=== PATIENT | female | born 1965 | race Caucasian/White ===

== ENCOUNTER → 2016-11-11 | Outpatient (CLI) | payer OTHER ==
[~2016-11-11] MED LIST: CLR10 PO; DXY100 PO; FLNIN/; FLUT0.0529 NAE; MULT-614 PO; NYSTCRE11 TOP; RANI150T3 PO; TAMO10TA25 PO; TRMCR180 EXT; VITA1TAB4 PO; VLT500 PO
[2016-11-11 10:18] LABS: HEMATOCRIT 38.6 % (37-47); MEAN CELL VOLUME 86.9 fL (80-100); MEAN CORPUSCULAR HEMOGLOBIN 29.3 pg (25-34); MEAN CORPUSCULAR HGB CONC 33.7 g/dl (32-36); MEAN PLATELET VOLUME 9.8 fL (7.4-10.4); PLATELET COUNT 279 K/uL (130-400); RED BLOOD COUNT 4.44 M/uL (4.2-5.4); WHITE BLOOD COUNT 7.25 K/uL (4.8-10.8)
[2016-11-11 10:27] LABS: ALT/SGPT 25 U/L (12-78); AST/SGOT 13 U/L (15-37); BLOOD UREA NITROGEN 11 mg/dl (7-18); BUN/CREATININE RATIO 15.9 (10-20); CARBON DIOXIDE 28 mmol/L (21-32); CHLORIDE 105 mmol/L (98-107); CREATININE 0.71 mg/dl (0.60-1.20); GLUCOSE 85 mg/dl (70-99); POTASSIUM 4.2 mmol/L (3.5-5.1); SODIUM 141 mmol/L (136-145)
[2016-11-11 10:30] LABS: ALKALINE PHOSPHATASE 81 U/L (45-117)
== END | disposition home or self-care (01) ==
LOC: C.LAB 09:13
PROVIDERS: ATTEND Family Medicine
DX: R10.11 Right upper quadrant pain (principal)

== ENCOUNTER → 2016-11-12 | Outpatient (CLI) | payer OTHER ==
--- NOTE | 2016-11-12 09:22 | DIAGNOSTIC IMAGING REPORT ---
ULTRASOUND RIGHT UPPER QUADRANT ABDOMEN CLINICAL HISTORY: Right upper quadrant abdominal pain. COMPARISON STUDY: Abdominal ultrasound dated 08/01/2007. TECHNIQUE: Real-time, grayscale, and color flow sonography of the right upper quadrant of the abdomen was performed. Images are reviewed in the transverse and longitudinal planes. FINDINGS: Liver: The liver is normal in size and and demonstrates heterogeneously increased echotexture consistent with hepatic steatosis. There is no intrahepatic biliary ductal dilatation. The main portal vein is patent. Gallbladder: The gallbladder is normal in appearance. No gallstones are identified. There is no gallbladder wall thickening or pericholecystic fluid. A sonographic Jacobsen's sign is reportedly absent. The common bile duct measures up to 0.5 cm in diameter. Pancreas: Visualized portions of the pancreatic head and body are normal in appearance. Right kidney: Survey images of the right kidney demonstrate normal size and echotexture. There is no hydronephrosis. Ascites: None. IMPRESSION: 1. No acute sonographic abnormality is identified in the right upper quadrant. No gallstones are seen. 2. Mild hepatic steatosis. Electronically signed by: Charles Live M.D. 11/12/2016 9:21 AM Dictated Date/Time: 11/12/2016 9:20 AM
== END | disposition home or self-care (01) ==
LOC: C.ULTR 08:29
PROVIDERS: ATTEND Family Medicine
DX: R10.11 Right upper quadrant pain (principal)

== ENCOUNTER → 2016-11-22 | Outpatient (CLI) | payer OTHER | END | disposition home or self-care (01) | LOC: C.PAPS 16:55 | PROVIDERS: ATTEND Obstetrics & Gynecology | DX: N87.1 Moderate cervical dysplasia (principal); Z01.419 Encounter for gynecological examination (general) (routine) without abnormal findings ==

== ENCOUNTER → 2016-12-21 | Outpatient (CLI) | payer OTHER ==
[2016-04-27 14:03] VITALS: BP 125/78; PULSE 84
[2016-12-21 13:16] VITALS: BP 119/80; PULSE 80; TEMP 36.7; O2SAT 96
--- NOTE | 2016-12-21 16:11 | Radiation Oncology Follow-Up ---
"Radiation Oncology Follow-Up Date of Visit Dec 21, 2016. Reason For Visit Eight-month follow-up Radiation Completion Date 09/26/13 Diagnosis (1) Carcinoma of left breast Status: Resolved Onset Date: 06/22/2013 Stage: 0 Permanent Comment: Abnormal left breast mammogram Status post stereotactic core needle biopsy 05/31/2013 revealing atypical intraductal hyperplasia Status post excisional biopsy 06/22/2013 revealing low-grade DCIS Status post completion of radiation therapy 09/26/2013 received 5040 cGy Last Edited By: Lexi Durant on Dec 21, 2016 16:03 History of Present Illness Ms. Downey continue to be followed with diagnostic mammograms. On 05/27/2014 bilateral diagnostic mammograms revealed postbiopsy changes but otherwise unremarkable. A unilateral left digital diagnostic mammogram on 06/14/2014 showed the biopsy clip in the left breast at 12 o'clock position. Follow-up unilateral left digital diagnostic mammogram on 12/16/2014 showed heterogeneously dense tissue of the left breast. Spot magnification views demonstrated postsurgical changes in the left superior breast at the 12 o'clock position from the prior lumpectomy. 2 residual biopsy marker clips were noted. The remainder of the left breast was stable. On 12/31/2014 patient underwent bilateral breast MRIs due to the dense breast tissue. In the right breast there was no suspicious masses or areas of abnormal enhancements noted. In the left breast there was the expected postsurgical changes with no suspicious masses or abnormal areas of enhancement. There was no evidence of left axillary adenopathy. However there was abnormally round and enlarged right axillary lymph node in the superior right axilla measuring 1.5 x 1.5 cm. This is indeterminate and ultrasound was recommended for further evaluation. On 01/2015 she underwent an ultrasound of the right breast and axilla. This confirmed a round hypoechoic mass measuring 1.3 x 1.3 x 1.5 cm this corresponded with the abnormal lymph nodes seen on MRI. This was not amenable to an ultrasound-guided core biopsy therefore an FNA was recommended. On 02/05/2015 patient underwent a fine-needle aspiration biopsy of the right axillary lymph node. The tissue obtained however was nondiagnostic. Case: [id number]. The recommendation was therefore to proceed with a surgical biopsy. Dr. Jimmy Valentin performed this on 03/21/2015. A reactive lymph node was identified containing lymphoid hyperplasia with no abnormal cells appreciated. Case: [id number]. The patient wishes to continue to be followed with serial mammograms. She was scheduled for bilateral diagnostic mammograms in June of this year. We were facilitating scheduling this study for her. Patient underwent a bilateral digital diagnostic mammogram on 06/17/2015. This showed some residual calcifications in the left o'clock breast adjacent to tumor biopsy marker clips not significantly changed from the study of May 2014. Follow-up mammogram in 6 months was recommended. rs. Downey underwent a unilateral left digital diagnostic mammogram on 2015. Spot magnification views of the left breast again demonstrated postsurgical changes at the 12 o'clock position. The residual calcifications adjacent to biopsy marker clips are not significantly changed. These have been stable for approximately 2 years and are likely benign. Recommended bilateral diagnostic mammograms in 6 months. These been scheduled for June of 2016. Interim History She's been doing well over the past 8 months. She has had her follow-up mammography. She does have a area of redness in the inframammary fold. She was prescribed a cream by her business analytics intern. This helps temporarily. The rash will faded then recur. There is no itching associated. This is only on the left side. This does not occur on the right. She has noted no masses or tenderness and no change of the axilla. She continues on tamoxifen and denies side effects. Allergies Coded Allergies: Diphtheria Toxoid (Verified Adverse Reaction, Intermediate, SWELLING, 03/30) Tetanus Toxoid (Verified Adverse Reaction, Intermediate, SWELLING, 03/30/16 ) Home Medications Scheduled Multiple Vitamins W/ Minerals (Centrum Silver Ultra [place]), 1 TAB PO QAM Tamoxifen Citrate (Tamoxifen Citrate), 10 MG PO BID Vitamin E (Vitamin E), 400 INTUNIT PO BID Scheduled PRN Fluticasone Propionate (Nasal) (Flonase), 2 SPRAY SULMA DAILY PRN for Nasal Congestion Loratadine (Claritin), 10 MG PO DAILY PRN for Nasal Congestion Nystatin/Triamcinolone (Mycogen || ), 1 APPLN TOP BID PRN for Affected Skin Folds Ranitidine Hcl (Zantac), 150 MG PO DAILY PRN for Heartburn Review of Systems Gastrointestinal: Symptoms: WNL Oral: Symptoms: No Problems Respiratory: Symptoms: WNL Other Respiratory: Recent episode of bronchitis treated with steroids/ antibiotics Urinary: Symptoms: WNL Skin: Symptoms: No Problems Other Skin Symptoms: Intermittent pink area under left breast where breast lays against abd; Breast: Right Upper Arm Measurement: 38.0 Right Mid Arm Measurement: 30.5 Right Wrist Measurement: 16.5 Left Upper Arm Measurement: 37.0 Left Mid Arm Measurement: 30.0 Left Wrist Measurement: 16.0 Arm Dominence: Right Patient Cosmetic Evaluation: Good Physical Exam Vital Signs Date Time Temp Pulse Resp B/P Pulse Ox O2 Delivery O2 Flow Rate FiO2 12/21/16 13:16 36.7 80 12 119/80 96 Pain: Pain Location: None Patient Pain Scale: 0 - 10 Initial Pain Intensity: 0.0 Fatigue: None General Appearance: no apparent distress Eyes: normal inspection, EOMI ENT: normal ENT inspection, hearing grossly normal Neck: no adenopathy, thyroid normal Respiratory/Chest: lungs clear, no respiratory distress, no accessory muscle use Breast: Breast examination reveals a well demarcated area of erythema in the inframammary fold of the left breast. This is slightly more red at the edges. There are no satellite lesions. She also has some mild raised erythematous lesions below the nipple. There are also some patchy dry areas noted in the lower inner portion of the right breast. On the left there are no masses or tenderness and no axillary adenopathy. Using the [place] score cosmesis she has a good outcome. The right breast showed no masses or tenderness and no axillary adenopathy. Cardiovascular: regular rate, rhythm, no gallop, no murmur Extremities: no pedal edema Neurologic/Psychiatric: no motor/sensory deficits, alert, normal mood/affect Skin: warm/dry Lymphatic: no adenopathy Laboratory Studies Test 11/11/16 09:24 12/15/16 09:10 White Blood Count 7.25 K/uL (4.8-10.8) 6.79 K/uL (4.8-10.8) Red Blood Count 4.44 M/uL (4.2-5.4) 4.51 M/uL (4.2-5.4) Hemoglobin 13.0 g/dL (12.0-16.0) 12.9 g/dL (12.0-16.0) Hematocrit 38.6 % (37-47) 38.3 % (37-47) Mean Corpuscular Volume 86.9 fL (80-100) 84.9 fL (80-100) Mean Corpuscular Hemoglobin 29.3 pg (25-34) 28.6 pg (25-34) Mean Corpuscular Hemoglobin Concent 33.7 g/dl (32-36) 33.7 g/dl (32-36) RDW Standard Deviation 41.3 fL (36.4-46.3) 39.2 fL (36.4-46.3) RDW Coefficient of Variation 12.9 % (11.5-14.5) 12.9 % (11.5-14.5) Platelet Count 279 K/uL (130-400) 310 K/uL (130-400) Mean Platelet Volume 9.8 fL (7.4-10.4) 9.2 fL (7.4-10.4) Sodium Level 141 mmol/L (136-145) 140 mmol/L (136-145) Potassium Level 4.2 mmol/L (3.5-5.1) 4.0 mmol/L (3.5-5.1) Chloride Level 105 mmol/L (98-107) 105 mmol/L (98-107) Carbon Dioxide Level 28 mmol/L (21-32) 29 mmol/L (21-32) Anion Gap 8.0 mmol/L (3-11) 6.0 mmol/L (3-11) Blood Urea Nitrogen 11 mg/dl (7-18) 11 mg/dl (7-18) Creatinine 0.71 mg/dl (0.60-1.20) 0.66 mg/dl (0.60-1.20) Estimated GFR () 113.5 117.7 Estimated GFR (Non- 97.9 101.6 BUN/Creatinine Ratio 15.9 (10-20) 17.0 (10-20) Random Glucose 85 mg/dl (70-99) 108 mg/dl (70-99) Calcium Level 9.0 mg/dl (8.5-10.1) 9.0 mg/dl (8.5-10.1) Total Bilirubin 0.4 mg/dl (0.2-1) 0.3 mg/dl (0.2-1) Aspartate Amino Transferase (AST) 13 U/L (15-37) 15 U/L (15-37) Alanine Aminotransferase (ALT) 25 U/L (12-78) 27 U/L (12-78) Alkaline Phosphatase 81 U/L (45-117) 93 U/L (45-117) Total Protein 7.1 gm/dl (6.4-8.2) 7.1 gm/dl (6.4-8.2) Albumin 3.6 gm/dl (3.4-5.0) 3.5 gm/dl (3.4-5.0) Globulin 3.5 gm/dl (2.5-4.0) 3.6 gm/dl (2.5-4.0) Albumin/Globulin Ratio 1.0 (0.9-2) 1.0 (0.9-2) Lipase 125 U/L (73-393) Neutrophils (%) (Auto) 52.8 % Lymphocytes (%) (Auto) 35.2 % Monocytes (%) (Auto) 9.0 % Eosinophils (%) (Auto) 2.1 % Basophils (%) (Auto) 0.3 % Neutrophils # (Auto) 3.59 K/uL (1.4-6.5) Lymphocytes # (Auto) 2.39 K/uL (1.2-3.4) Monocytes # (Auto) 0.61 K/uL (0.11-0.59) Eosinophils # (Auto) 0.14 K/uL (0-0.5) Basophils # (Auto) 0.02 K/uL (0-0.2) Immature Granulocyte % (Auto) 0.6 % Immature Granulocyte # (Auto) 0.04 K/uL (0.00-0.02) Est Creatinine Clear Calc Drug Dose 117.9 ml/min Assessment & Plan Plan: The areas of the skin appear to be related to monilial infection. She notes she did recently have laboratory studies and glucose was normal if she was not fasting area. This to be slightly elevated if she had been fasting. Topical medications are not helping with the monilial infection. She has in the past taken Diflucan. Prescription was given for 100 mg pills. She'll take 2 today and then one to complete. #8 were given and no refill. We asked her to return to our office in 3 months. Will be to reevaluate the areas of skin irritation. She continues to have changes in the area of the nipple she'll be referred back to her surgeon for an evaluation. She'll continue with scheduled mammography. She continues on tamoxifen. Total Time In Follow-Up I spent 20 minutes speaking to the patient and performing examination. I spent 15 minutes reviewing information completing this note. Copy To Inocente Enriquez D.O.; Aleena Solomon M.D."
== END | disposition home or self-care (01) ==
LOC: C.ONC 13:09
PROVIDERS: ATTEND Physician Assistant Medical
DX: Z08 Encounter for follow-up examination after completed treatment for malignant neoplasm (principal); Z92.3 Personal history of irradiation; Z85.3 Personal history of malignant neoplasm of breast

== ENCOUNTER → 2017-01-24 | Outpatient (CLI) | payer OTHER ==
[2017-01-24 10:05] LABS: CHOLESTEROL/HDL RATIO 3.3
== END | disposition home or self-care (01) ==
LOC: C.LAB 08:16
PROVIDERS: ATTEND Family Medicine
DX: Z13.1 Encounter for screening for diabetes mellitus (principal); Z13.6 Encounter for screening for cardiovascular disorders

== ENCOUNTER → 2017-04-05 | Outpatient (CLI) | payer OTHER ==
[2017-04-05 13:49] VITALS: BP 138/84; PULSE 83; TEMP 36.7; O2SAT 99
--- NOTE | 2017-04-05 17:00 | Radiation Oncology Follow-Up ---
"Radiation Oncology Follow-Up Date of Visit Apr 05, 2017. 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 Paez continue to be followed with diagnostic mammograms. On 05/27/2014 bilateral diagnostic mammograms revealed postbiopsy changes but otherwise unremarkable. A unilateral left digital diagnostic mammogram on 06/14/2014 showed the biopsy clip in the left breast at 12 o'clock position. Follow-up unilateral left digital diagnostic mammogram on 12/16/2014 showed heterogeneously dense tissue of the left breast. Spot magnification views demonstrated postsurgical changes in the left superior breast at the 12 o'clock position from the prior lumpectomy. 2 residual biopsy marker clips were noted. The remainder of the left breast was stable. On 12/31/2014 patient underwent bilateral breast MRIs due to the dense breast tissue. In the right breast there was no suspicious masses or areas of abnormal enhancements noted. In the left breast there was the expected postsurgical changes with no suspicious masses or abnormal areas of enhancement. There was no evidence of left axillary adenopathy. However there was abnormally round and enlarged right axillary lymph node in the superior right axilla measuring 1.5 x 1.5 cm. This is indeterminate and ultrasound was recommended for further evaluation. On 01/2015 she underwent an ultrasound of the right breast and axilla. This confirmed a round hypoechoic mass measuring 1.3 x 1.3 x 1.5 cm this corresponded with the abnormal lymph nodes seen on MRI. This was not amenable to an ultrasound-guided core biopsy therefore an FNA was recommended. On 02/05/2015 patient underwent a fine-needle aspiration biopsy of the right axillary lymph node. The tissue obtained however was nondiagnostic. Case: [id number]. The recommendation was therefore to proceed with a surgical biopsy. Dr. Jimmy Valentin performed this on 03/21/2015. A reactive lymph node was identified containing lymphoid hyperplasia with no abnormal cells appreciated. Case: [id number]. The patient wishes to continue to be followed with serial mammograms. She was scheduled for bilateral diagnostic mammograms in June of this year. We were facilitating scheduling this study for her. Patient underwent a bilateral digital diagnostic mammogram on 06/17/2015. This showed some residual calcifications in the left o'clock breast adjacent to tumor biopsy marker clips not significantly changed from the study of May 2014. Follow-up mammogram in 6 months was recommended. Interim History She's been doing well over the past year regards to her breast. No no masses or tenderness no change of the axilla. She's had no swelling of her arm. She is up-to-date on mammography. She had a mammogram 06/21/2016 there were postsurgical and postbiopsy changes in the left breast. Recommendation was for a repeat in 12 months. She had been having pain in the right upper quadrant of the abdomen and had an ultrasound 12/09/2016. There was no acute sonographic abnormalities identified. There was mild hepatic steatosis. Allergies Coded Allergies: Diphtheria Toxoid (Verified Adverse Reaction, Intermediate, SWELLING, 03/30) Tetanus Toxoid (Verified Adverse Reaction, Intermediate, SWELLING, 03/30/16 ) Home Medications Scheduled Multiple Vitamins W/ Minerals (Centrum Silver Ultra [place]), 1 TAB PO QAM Tamoxifen Citrate (Tamoxifen Citrate), 10 MG PO BID Vitamin E (Vitamin E), 400 INTUNIT PO BID Scheduled PRN Fluticasone Propionate (Nasal) (Flonase), 2 SPRAY SULMA DAILY PRN for Nasal Congestion Loratadine (Claritin), 10 MG PO DAILY PRN for Nasal Congestion Nystatin/Triamcinolone (Mycogen || ), 1 APPLN TOP BID PRN for Affected Skin Folds Ranitidine Hcl (Zantac), 150 MG PO DAILY PRN for Heartburn Review of Systems Gastrointestinal: Symptoms: WNL Oral: Symptoms: No Problems Respiratory: Symptoms: SOB At Rest Urinary: Symptoms: WNL Skin: Symptoms: No Problems Other Skin Symptoms: under left breast skin is pink since had rash there Breast: Right Upper Arm Measurement: 37.0 Right Mid Arm Measurement: 29.0 Right Wrist Measurement: 16.5 Left Upper Arm Measurement: 37.0 Left Mid Arm Measurement: 28.5 Left Wrist Measurement: 16.3 Arm Dominence: Right Patient Cosmetic Evaluation: Good Staff Cosmetic Evalaluation: Excellent Physical Exam Vital Signs Date Time Temp Pulse Resp B/P (MAP) Pulse Ox O2 Delivery O2 Flow Rate FiO2 04/05/17 13:49 36.7 83 18 138/84 99 Pain: Patient Pain Scale: 0 - 10 Initial Pain Intensity: 0.0 Fatigue: None General Appearance: no apparent distress Eyes: normal inspection, EOMI ENT: normal ENT inspection, hearing grossly normal Neck: no adenopathy, thyroid normal Respiratory/Chest: lungs clear, no respiratory distress, no accessory muscle use Breast: Breast examination reveals well-healed incisions of the left breast. There are no masses or tenderness and no axillary adenopathy. There is no hyperpigmentation or skin retractions. Using the [place] score cosmesis she has a good outcome. There is mild erythema or skin in the inframammary fold on the left. This is well demarcated. Right breast showed no masses or tenderness no axillary adenopathy. Cardiovascular: regular rate, rhythm, no gallop, no murmur Abdomen: non tender, soft Extremities: no pedal edema Neurologic/Psychiatric: no motor/sensory deficits, alert, normal mood/affect Skin: warm/dry Laboratory Studies Test 01/24/17 08:20 Random Glucose 88 mg/dl (70-99) Triglycerides Level 170 mg/dl (0-150) Cholesterol Level 177 mg/dl (0-200) HDL Cholesterol 54 mg/dl LDL Cholesterol, Calculated 89 mg/dl VLDL Cholesterol, Calculated 34 mg/dl Cholesterol/HDL Ratio 3.3 Additional Studies Patient: JENNIFER PAEZ [facility] Rec: [id number] Address1: [address] [place] [address] Address2: [facility] ID: [id number] Date: 1965 Sex: F Ref Phy: Att Phy: Inocente Enriquez D.O. Terri Phy: Aleena Solomon M.D. Inter Phy: Ruth Chandra MD [facility] Zip: [place] [address] SC: [id number] Report #: [id number] Club Concierge: PITA Diagnosis: 6 MONTH F/U LEFT--BILATERAL DUE Service Date: 06/21/16 MNE: [id number] Ordering Dr: Inocente Enriquez D.O. CC: Balaban, Edward P., D.O. CONF: DICTATED BY: Ruth Chandra MD MAMMOGRAPHY REPORT BILATERAL DIGITAL DIAGNOSTIC MAMMOGRAM 3D/2D WITH CAD: 06/21/2016 CLINICAL HISTORY: 51-year-old woman with a personal history of left breast cancer status post lumpectomy and radiation. The original biopsy marker clip denoting the site of the original biopsy-proven DCIS remains in the left breast. A second biopsy marker clip is present anteriorly denoting microcalcifications which were biopsied after treatment and yielded benign pathology. Comparison is made to exams dated: 12/17/2015 mammogram, 06/17/2015 mammogram, and 05/27/2014 mammogram - [facility]. FINDINGS: Bilateral CC and MLO to the digital and tomosynthesis images, spot magnification left CC and ML views were obtained. There are scattered areas of fibroglandular density in both breasts. Current study was also evaluated with a Computer Aided Detection (CAD) system. Again seen are 2 metallic biopsy markers in the 12:00 middle one third of the left breast. There are clustered microcalcifications near the 2 metallic biopsy markers which are located near the posterior and anterior aspect of the clustered microcalcifications. These span approximately 5 cm in AP dimension by 2 cm in transverse dimension. The microcalcifications are somewhat punctate and amorphous but a few centrally look more reticular on the current spot magnification views, suggesting they could represent benign fat necrosis. No other new clusters of microcalcifications are seen bilaterally. No obvious new mass or unexpected architectural distortion. IMPRESSION: ACR-BI-RADS CATEGORY 3: PROBABLY BENIGN There are expected postsurgical and post biopsy changes within the left breast, with a 5 x 2 cm cluster of microcalcifications remaining in the middle one third of the left breast. Some of the calcifications appear coarsened and reticular, suggesting they represent dystrophic calcification. Others remain amorphous, yet the overall number appears stable comparing back to spot magnification views over the past 2 years. Since the original biopsy marker clip remains in the breast some of the calcifications could represent indolent DCIS but overall given the more recent biopsy-proven benign calcifications, they probably represent fat necrosis and postsurgical change. Therefore, we will continue to follow with spot magnification views but will space out the timing to 12 months at the time of next annual screening mammogram. These results and recommendations were discussed with the patient at the time of the exam. Follow-up bilateral mammograms including tomosynthesis images and spot magnification views of the left breast are recommended in 12 months. Approximately 10% of breast cancers are not detected with mammography. A negative mammographic report should not delay biopsy if a clinically suggestive mass is present. Ruth Chandra M.D. ay/:06/21/2016 15:14:04 Sugar Controller: Angela LOCKETT)(Marian), [facility] letter sent: Follow Up Recommended 3 BI-RADS Code: ACR-BI-RADS Category 3: Probably Benign Dictated by: Ruth Chandra MD Signed by: Ruth Chandra MD Patient: JENNIFER PAEZ Address1: [address] [facility] Rec: [id number] Address2: Acct ID: [id number] [facility] Zip: [place] [address] Date: 1965 Sex: F Room/Bed: Ref Phy: Kendell Aguilar D.O. SC: C.ULTR Att Phy: Kendell Aguilar D.O. Report #: [id number] Terri Phy: Kendell Aguilar D.O. Test: ABDL Admit Phy: Club Concierge: SAIMA Interpreting Phy: Charles Live M.D. Diagnosis: RUQ ABD PAIN Ordering Phy: Kendell Aguilar D.O. Service Date: 11/12/16 Admit Date: 11/12/16 MNE: [id number] CONF: DICTATED BY: Charles Live M.D.]] CC: Kendell Aguilar D.O. Endcc: [~ rep ct add3]] ULTRASOUND RIGHT UPPER QUADRANT ABDOMEN CLINICAL HISTORY: Right upper quadrant abdominal pain. COMPARISON STUDY: Abdominal ultrasound dated 08/01/2007. TECHNIQUE: Real-time, grayscale, and color flow sonography of the right upper quadrant of the abdomen was performed. Images are reviewed in the transverse and longitudinal planes. FINDINGS: Liver: The liver is normal in size and and demonstrates heterogeneously increased echotexture consistent with hepatic steatosis. There is no intrahepatic biliary ductal dilatation. The main portal vein is patent. Gallbladder: The gallbladder is normal in appearance. No gallstones are identified. There is no gallbladder wall thickening or pericholecystic fluid. A sonographic Jacobsen's sign is reportedly absent. The common bile duct measures up to 0.5 cm in diameter. Pancreas: Visualized portions of the pancreatic head and body are normal in appearance. Right kidney: Survey images of the right kidney demonstrate normal size and echotexture. There is no hydronephrosis. Ascites: None. IMPRESSION: 1. No acute sonographic abnormality is identified in the right upper quadrant. No gallstones are seen. 2. Mild hepatic steatosis. Electronically signed by: Charles Live M.D. 11/12/2016 9:21 AM Dictated Date/Time: 11/12/2016 9:20 AM Assessment & Plan Plan: Continue annual mammography. We discussed seen a smelter operator for the recurring issue of fungal infection of the inframammary fold. She was in agreement and will call. Information was given regards to available physicians. Continue regular follow-up with her primary care physician and Dr. Enriquez. We discussed the steatosis found on her ultrasound. Recommendation for diet and exercise. She can continue to follow up with with her primary care physician in regards to this finding. We asked her to return to our office in 1 year. She may call if she has any questions or concerns in the interim. Total Time In Follow-Up I spent 20 minutes the need to the patient performing examination. I spent 15 minutes reviewing information in completing this note. Copy To Inocente Enriquez D.O.; Kendell Aguilar, D.O."
== END | disposition home or self-care (01) ==
LOC: C.ONC 13:40
PROVIDERS: ATTEND Physician Assistant Medical
DX: Z08 Encounter for follow-up examination after completed treatment for malignant neoplasm (principal); Z92.3 Personal history of irradiation; Z85.3 Personal history of malignant neoplasm of breast

== ENCOUNTER 2017-05-26 14:48 | Inpatient (IN) | payer OTHER ==
[~2017-05-26] VITALS: Ht 165.1 cm; Wt 106.1 kg
[~2017-05-26 14:48] MED LIST changes: -DXY100 PO; -FLNIN/; -TRMCR180 EXT; -VLT500 PO
[2017-05-26] MEDS ORDERED: FLNIN/ (15:10)
[2017-05-26] MEDS ORDERED: KETOROLAC TROMETHAMINE 30 MG/ML VIAL IV STA (15:12)
[2017-05-26 15:24] LABS: BASO % 0.1 %; BASO ABS # 0.01 K/uL (0-0.2); COMPLETE YES; EOS % 0.4 %; HEMATOCRIT 39.2 % (37-47); IG% 0.2 %; LYMPH % 8.4 %; MEAN CELL VOLUME 87.7 fL (80-100); MEAN CORPUSCULAR HEMOGLOBIN 29.8 pg (25-34); MEAN CORPUSCULAR HGB CONC 33.9 g/dl (32-36); MEAN PLATELET VOLUME 9.4 fL (7.4-10.4); MONO % 6.4 %; NEUT % 84.5 %; PLATELET COUNT 277 K/uL (130-400); RED BLOOD COUNT 4.47 M/uL (4.2-5.4); WHITE BLOOD COUNT 16.63 K/uL (4.8-10.8)
--- NOTE | 2017-05-26 15:26 | DIAGNOSTIC IMAGING REPORT ---
CHEST ONE VIEW PORTABLE CLINICAL HISTORY: 52 years-old Female presenting with CHEST PAIN. TECHNIQUE: Portable upright AP view of the chest was obtained. COMPARISON: Nondiagnostic CT from 08/01/2013. FINDINGS: Cardiomediastinal silhouette normal. Lungs and pleural spaces clear. Degenerative changes of the thoracic spine. Upper abdomen normal. IMPRESSION: 1. No acute cardiopulmonary disease. Electronically signed by: Mat Becker M.D. 05/26/2017 3:25 PM Dictated Date/Time: 05/26/2017 3:24 PM
[2017-05-26] MEDS ORDERED: SODIUM CHLORIDE 0.9% 1000ML 1,000 ML IV STA ×2 (15:40→18:12)
[2017-05-26 15:45] LABS: ALT/SGPT 25 U/L (12-78); BLOOD UREA NITROGEN 10 mg/dl (7-18); BUN/CREATININE RATIO 11.6 (10-20); CALCIUM 9.2 mg/dl (8.5-10.1); CARBON DIOXIDE 26 mmol/L (21-32); CHLORIDE 103 mmol/L (98-107); CREATININE 0.83 mg/dl (0.60-1.20); GLUCOSE 166 mg/dl (70-99); POTASSIUM 3.7 mmol/L (3.5-5.1); SODIUM 137 mmol/L (136-145)
[2017-05-26 15:50] LABS: ALKALINE PHOSPHATASE 94 U/L (45-117); AST/SGOT 20 U/L (15-37); CKMB/CK RATIO 1.1 (0-3.0)
[2017-05-26] MEDS ORDERED: OPTIRAY 320 IV PRN (16:00)
--- NOTE | 2017-05-26 16:49 | DIAGNOSTIC IMAGING REPORT ---
ABD/PELVIS IV CONTRAST ONLY CT DOSE: 1085.01 mGy.cm HISTORY: Pain Fever, upper abd pain, RUQ. Elevated lactate. TECHNIQUE: Multiaxial CT images of the abdomen and pelvis were performed following the use of intravenous contrast. A dose lowering technique was utilized adhering to the principles of ALARA. COMPARISON STUDY: None. FINDINGS: The lung bases are clear. The liver, spleen, gallbladder, pancreas, kidneys, and adrenal glands are within normal limits. No bowel wall thickening or obstruction. The pelvic organs are unremarkable. No suspicious lytic or blastic osseous lesions. IMPRESSION: No significant abnormality identified within the abdomen or pelvis. The above report was generated using voice recognition software. It may contain grammatical, syntax or spelling errors. Electronically signed by: Quinton Schneider M.D. 05/26/2017 4:48 PM Dictated Date/Time: 05/26/2017 4:45 PM
--- NOTE | 2017-05-26 17:36 | DIAGNOSTIC IMAGING REPORT ---
BILIARY ULTRASOUND CLINICAL HISTORY: RUQ pain, fever COMPARISON STUDY: 11/12/2016 FINDINGS: The pancreas was poorly visualized. The liver was poorly visualized. The liver is of increased echogenicity, nonspecific finding most often seen in hepatic steatosis. There is no right-sided hydronephrosis. There is no ductal dilatation. No gallstones are visualized. IMPRESSION: 1. Significantly limited study from a technical standpoint 2. No gallstones identified 3. No evidence of ductal dilatation 4. Increased hepatic echogenicity, a nonspecific finding most likely secondary to hepatic steatosis Electronically signed by: Kt Blackburn M.D. 05/26/2017 5:34 PM Dictated Date/Time: 05/26/2017 5:33 PM
[2017-05-26] MEDS ORDERED: ONDANSETRON 8 MG/54 ML D5W IV STA (18:12)
[2017-05-26] MEDS ORDERED: HYDROmorphone INJ 0.5 MG/0.5 ML SYR IV STA (18:12)
[2017-05-26] MEDS ORDERED: VANCOMYCIN INJ 2,000 MG in SODIUM CHLORIDE 0.9% 500ML 500 ML IV STA (18:52)
[2017-05-26] MEDS ORDERED: CEFTRIAXONE SOD INJ 1 GM ADDVIAL IV STA (18:52)
[2017-05-26] MEDS ORDERED: TRAMADOL HCL 50 MG TAB PO PRN (20:00)
[2017-05-26] MEDS ORDERED: HYDROmorphone INJ 0.5 MG/0.5 ML SYR IV PRN (20:00)
[2017-05-26] MEDS ORDERED: KETOROLAC TROMETHAMINE 30 MG/ML VIAL IV PRN (20:00)
[2017-05-26] MEDS ORDERED: FLUTICASONE PROPIONATE NA SPR 16 GM BTL PRN (20:00)
[2017-05-26] MEDS ORDERED: LORATADINE 10 MG TAB PO PRN (20:00)
[2017-05-26] MEDS ORDERED: IBUPROFEN 200 MG TAB PO PRN (20:00)
[2017-05-26] MEDS ORDERED: RANITIDINE HCL 150 MG TAB PO PRN (20:00)
[2017-05-26] MEDS ORDERED: LORAZEPAM 2 MG/ML 1 ML VIAL IV PRN (20:00)
[2017-05-26 20:16] LABS: MAGNESIUM 1.9 mg/dl (1.8-2.4); THYROID STIMULATING HORMONE 0.558 uIu/ml (0.300-4.500)
[2017-05-26] MEDS ORDERED: ACETAMINOPHEN 325 MG TAB PO STA (20:27)
[2017-05-26] MEDS ORDERED: LORAZEPAM INJ 0.5 MG in SYRINGE 0.75 ML IV PRN (20:30)
--- NOTE | 2017-05-26 20:50 | HISTORY & PHYSICAL EXAMINATION ---
DATE OF ADMISSION: 05/26/2017 PRIMARY CARE PHYSICIAN: Dr. Aguilar. CHIEF COMPLAINT: Chest discomfort. HISTORY OF PRESENT ILLNESS: Medical history significant for breast cancer L status post surgery, radiation , ongoing hormonal therapy, GERD, hx of herpes zoster. Recent confinement March of 2015 under Orthopedic surgeries for carpal tunnel surgery. Today, the patient woke up not feeling well, indigestion sx, diarrhea, nonbloody , chest discomfort going to the back, pleuritic, nausea, vomiting. Fever noted. At the Emergency Room, a painful rash without blisters was noted on the left flank/L ant abd similar to location of shingles but not as painful as per patient. Patient given IV Vancomycin, Ceftriaxone for sepsis. MEDICAL HISTORY: As above. SURGERIES: Mastectomy, gynecologic procedures, carpal tunnel surgery. HOME MEDICATIONS: Include vitamin E, fluticasone, loratadine, Centrum, Zantac, tamoxifen. ALLERGIES: TETANUS TOXOID. FAMILY HISTORY: Lung cancer, breast cancer, diabetes. PERSONAL SOCIAL HISTORY: Nonsmoker, no chronic intake of alcohol, Hospital pharmacy employee. REVIEW OF SYSTEMS: As per HPI, all other ROS negative. PHYSICAL EXAMINATION: VITAL SIGNS: Blood pressure was noted to be 128/77, pulse rate 117, RR 25, T 38 sats 98% on room air. GENERAL: Noted to be uncomfortable, obese, no respiratory distress. SKIN: Normal color. HEENT: [place] palpebral conjunctivae. Dry mucosa. NECK: Short neck. LUNGS: Decreased effort. HEART: Tachycardic. ABDOMEN: induration on the left anterior abdomen going to the flank, tender and warm. EXTREMITIES: Minimal LE edema. No tenderness NEUROLOGIC: No gross focality. LABORATORY AND IMAGING DATA: Hemoglobin 13.3, white cell count 16.6, platelets 277. Sodium noted to be 138 chloride 103, CO2 26, BUN 10, creatinine 0.8, glucose 166. D-dimer was normal. Troponin was normal. EKG as per my interpretation sinus tachycardia, ST depression on the lateral leads. Chest x-ray, no acute cardiopulmonary disease. CT of the abdomen and pelvis showed liver, spleen, gallbladder, pancreas, kidneys, adrenal glands are normal limits. No bowel wall thickening. ASSESSMENT: 1. Sepsis Possible sources : cellulitis, left flank/lateral abdominal wall (?atypical/beginning shingles) Diarrhea rule out C. difficile 2. Breast cancer, left, status post surgery, radiation, ongoing hormonal therapy. 3. Hyperglycemia, rule out diabetes. PLAN: GMF IVF, follow lactic acid CS, stool Clostridium difficile. Doxycycline for now for cellulitis, local measures for cellulitis. (Low threshold for starting antiviral if no response to antibiotic or with development of classic blistering rash.)vesicular her periods of Flagyl now for presumptive C. diff. in light of sepsis criteria. Discontinue Flagyl if stool C. diff negative Check hemoglobin A1c. DVT prophylaxis with Lovenox subQ. Full code. MTDD
[2017-05-26 20:54] LABS: URINE APPEARANCE CLEAR (CLEAR); URINE BILIRUBIN NEG (NEG); URINE COLOR YELLOW; URINE NITRITE NEG (NEG); URINE PH 7.5 (4.5-7.5); URINE SPECIFIC GRAVITY 1.043 (1.000-1.030); UROBILINOGEN NEG (NEG); ZZUR CULT IF INDIC CLEAN CATCH NO
[2017-05-26 20:56] LABS: MANUAL MICROSCOPIC REQUIRED? NO; REVIEW REQ? NO
[2017-05-26 21:00] VITALS: BP 151/80; PULSE 116; TEMP 38.4; Ht 165.1 cm; Wt 106.1 kg
[2017-05-26] MEDS ORDERED: NSS + 20MEQ KCL 1000ML 1,000 ML IV ONE (21:00)
[2017-05-26] MEDS: TAMOXIFEN CITRATE 10 MG TAB PO SCH (21:26)
[2017-05-26 21:37] LABS: PROTHROMBIN TIME (PATIENT) 10.8 SECONDS (9.0-12.0)
[2017-05-26 22:12] VITALS: TEMP 37.4
[2017-05-26] MEDS: DOXYCYCLINE IV 100 MG in DEXTROSE 5% 100ML 100 ML IV SCH (22:18)
[2017-05-26] MEDS: METRONIDAZOLE / NSS 500 MG in PREMIXED NSS 100 ML IV SCH (22:18)
--- NOTE | 2017-05-26 23:13 | EMERGENCY ROOM VISIT NOTE ---
"History Report prepared by Destiny: Rafi Downey Under the Supervision of: Dr. Jadon Ospina M.D. First contact with patient: 15:02 Chief Complaint: CHEST PAIN Stated Complaint: CHEST PAIN History of Present Illness The patient is a 52 year old female who presents to the Emergency Room with complaints of constant epigastric chest pain beginning 5 hours ago. She currently rates her discomfort a 4/10 in severity. The patient states that when her pain began, she thought it was gas and experienced diarrhea. She reports that she tried burping and took a Zantac, but this did not help. The patient notes that her discomfort radiates to her back, and she developed a fever. She states that when she takes a deep breath, her pain intensifies. The patient reports that walking and moving does not increase her discomfort. She notes that she had pains in her right upper quadrant before, and she was told it was fatty liver. The patient states that this pain is not comparable. She reports that she has had endoscopies before for GERD, and she was told she had a hiatal hernia that is not causing any complications. She denies a history of blood clots, gallbladder disease, appendicitis, and heart problems. She notes that she as a family history of gallbladder disease. Pt denies LOC, headache, chills , diaphoresis, visual changes, neck pain, breathing difficulties, nausea, vomiting, lower abdominal pain, melena, hematochezia, urinary symptoms, numbness , weakness, lymphadenopathy, rash, recent travel, recent injury, trouble swallowing, swallowing anything unusual or other complaints. Source of History: patient Onset: 5 hours ago Position: chest (epigastric) Symptom Intensity: 4/10 Timing: constant Modifying Factors (Worsening): breathing Associated Symptoms: + fevers, + back pain, + diarrhea Review of Systems See HPI for pertinent positives and negatives. A total of ten systems were reviewed and were otherwise negative. Past Medical & Surgical Medical Problems: (1) Bronchitis (2) Carcinoma of left breast (3) HTN (hypertension) (4) Sepsis (5) Stomach problems Family History Cancer Diabetes mellitus Gallbladder disease Heart disease Hypertension Kidney disease Kidney stones Social History Smoking Status: Former Smoker Smokeless Tobacco Use: No Alcohol Use: none Marital Status: Housing Status: lives with significant other Occupation Status: employed Current/Historical Medications Scheduled Multiple Vitamins W/ Minerals (Centrum Silver Ultra [place]), 1 TAB PO QAM Tamoxifen Citrate (Tamoxifen Citrate), 20 MG PO QPM Vitamin E (Vitamin E), 400 INTUNIT PO BID Scheduled PRN Fluticasone Propionate (Fluticasone Propionate), 2 SPRAYS NA DAILY PRN for Nasal Congestion Loratadine (Claritin), 10 MG PO DAILY PRN for Nasal Congestion Nystatin/Triamcinolone (Mycogen || ), 1 APPLN TOP BID PRN for Affected Skin Folds Ranitidine Hcl (Zantac), 150 MG PO DAILY PRN for Heartburn Allergies Coded Allergies: Diphtheria Toxoid (Verified Adverse Reaction, Intermediate, SWELLING, 05/26) Tetanus Toxoid (Verified Adverse Reaction, Intermediate, SWELLING, 05/26/17 ) Physical Exam Vital Signs Date Time Temp Pulse Resp B/P (MAP) Pulse Ox O2 Delivery O2 Flow Rate FiO2 05/26/17 18:29 117 25 131/68 92 Room Air 05/26/17 17:02 37.8 100 20 128/77 100 Room Air 05/26/17 17:00 37.8 100 20 128/77 100 Room Air 05/26/17 15:16 109 05/26/17 15:06 99 Room Air 05/26/17 15:03 Room Air 05/26/17 14:52 38.7 111 20 175/110 97 Room Air Physical Exam GENERAL: Awake, alert, uncomfortable-appearing, in no distress HENT: Normocephalic, atraumatic. Oropharynx unremarkable. EYES: Normal conjunctiva. Sclera non-icteric. NECK: Supple. No nuchal rigidity. FROM. No JVD. RESPIRATORY: Clear to auscultation. CARDIAC: Tachycardic rate, normal rhythm. Extremities warm and well perfused. Pulses equal. ABDOMEN: Soft, non-distended. No right upper quadrant tenderness to palpation. No rebound or guarding. No masses. RECTAL: Deferred. MUSCULOSKELETAL: Chest examination reveals no tenderness. The back is symmetrical on inspection without obvious abnormality. There is no CVA tenderness to palpation. No joint edema. LOWER EXTREMITIES: Calves are equal size bilaterally and non-tender. No edema. No discoloration. NEURO: Normal sensorium. No sensory or motor deficits noted. SKIN: No rash or jaundice noted. Medical Decision & Procedures ER Provider Diagnostic Interpretation: Radiology results as stated below per my review and radiologist interpretation: CHEST ONE VIEW PORTABLE CLINICAL HISTORY: 52 years-old Female presenting with CHEST PAIN. TECHNIQUE: Portable upright AP view of the chest was obtained. COMPARISON: Nondiagnostic CT from 08/01/2013. FINDINGS: Cardiomediastinal silhouette normal. Lungs and pleural spaces clear. Degenerative changes of the thoracic spine. Upper abdomen normal. IMPRESSION: 1. No acute cardiopulmonary disease. Electronically signed by: Mat Becker M.D. 05/26/2017 3:25 PM Dictated Date/Time: 05/26/2017 3:24 PM ABD/PELVIS IV CONTRAST ONLY CT DOSE: 1085.01 mGy.cm HISTORY: Pain Fever, upper abd pain, RUQ. Elevated lactate. TECHNIQUE: Multiaxial CT images of the abdomen and pelvis were performed following the use of intravenous contrast. A dose lowering technique was utilized adhering to the principles of ALARA. COMPARISON STUDY: None. FINDINGS: The lung bases are clear. The liver, spleen, gallbladder, pancreas, kidneys, and adrenal glands are within normal limits. No bowel wall thickening or obstruction. The pelvic organs are unremarkable. No suspicious lytic or blastic osseous lesions. IMPRESSION: No significant abnormality identified within the abdomen or pelvis. The above report was generated using voice recognition software. It may contain grammatical, syntax or spelling errors. Electronically signed by: Quinton Schneider M.D. 05/26/2017 4:48 PM Dictated Date/Time: 05/26/2017 4:45 PM BILIARY ULTRASOUND CLINICAL HISTORY: RUQ pain, fever COMPARISON STUDY: 11/12/2016 FINDINGS: The pancreas was poorly visualized. The liver was poorly visualized. The liver is of increased echogenicity, nonspecific finding most often seen in hepatic steatosis. There is no right-sided hydronephrosis. There is no ductal dilatation. No gallstones are visualized. IMPRESSION: 1. Significantly limited study from a technical standpoint 2. No gallstones identified 3. No evidence of ductal dilatation 4. Increased hepatic echogenicity, a nonspecific finding most likely secondary to hepatic steatosis Electronically signed by: Kt Blackburn M.D. 05/26/2017 5:34 PM Dictated Date/Time: 05/26/2017 5:33 PM Laboratory Results 05/26/17 15:10 Red Blood Count 4.47, Mean Corpuscular Volume 87.7, Mean Corpuscular Hemoglobin 29.8, Mean Corpuscular Hemoglobin Concent 33.9, Mean Platelet Volume 9.4, Neutrophils (%) (Auto) 84.5, Lymphocytes (%) (Auto) 8.4, Monocytes (%) (Auto) 6.4, Eosinophils (%) (Auto) 0.4, Basophils (%) (Auto) 0.1, Neutrophils # (Auto) 14.04, Lymphocytes # (Auto) 1.40, Monocytes # (Auto) 1.07, Eosinophils # (Auto) 0.07, Basophils # (Auto) 0.01 05/26/17 15:10 Test 05/26/17 15:10 05/26/17 15:12 05/26/17 15:14 05/26/17 18:35 White Blood Count 16.63 K/uL (4.8-10.8) Red Blood Count 4.47 M/uL (4.2-5.4) Hemoglobin 13.3 g/dL (12.0-16.0) Hematocrit 39.2 % (37-47) Mean Corpuscular Volume 87.7 fL (80-100) Mean Corpuscular Hemoglobin 29.8 pg (25-34) Mean Corpuscular Hemoglobin Concent 33.9 g/dl (32-36) Platelet Count 277 K/uL (130-400) Mean Platelet Volume 9.4 fL (7.4-10.4) Neutrophils (%) (Auto) 84.5 % Lymphocytes (%) (Auto) 8.4 % Monocytes (%) (Auto) 6.4 % Eosinophils (%) (Auto) 0.4 % Basophils (%) (Auto) 0.1 % Neutrophils # (Auto) 14.04 K/uL (1.4-6.5) Lymphocytes # (Auto) 1.40 K/uL (1.2-3.4) Monocytes # (Auto) 1.07 K/uL (0.11-0.59) Eosinophils # (Auto) 0.07 K/uL (0-0.5) Basophils # (Auto) 0.01 K/uL (0-0.2) RDW Standard Deviation 41.7 fL (36.4-46.3) RDW Coefficient of Variation 12.9 % (11.5-14.5) Immature Granulocyte % (Auto) 0.2 % Immature Granulocyte # (Auto) 0.04 K/uL (0.00-0.02) Anion Gap 8.0 mmol/L (3-11) Est Creatinine Clear Calc Drug Dose 94.8 ml/min Estimated GFR () 93.3 Estimated GFR (Non- 80.5 BUN/Creatinine Ratio 11.6 (10-20) Calcium Level 9.2 mg/dl (8.5-10.1) Magnesium Level 1.9 mg/dl (1.8-2.4) Total Bilirubin 0.5 mg/dl (0.2-1) Direct Bilirubin 0.1 mg/dl (0-0.2) Aspartate Amino Transf (AST/SGOT) 20 U/L (15-37) Alanine Aminotransferase (ALT/SGPT) 25 U/L (12-78) Alkaline Phosphatase 94 U/L (45-117) Total Creatine Kinase 114 U/L (26-192) Creatine Kinase MB 1.2 ng/ml (0.5-3.6) Creatine Kinase MB Ratio 1.1 (0-3.0) Total Protein 7.6 gm/dl (6.4-8.2) Albumin 3.7 gm/dl (3.4-5.0) Lipase 135 U/L (73-393) Thyroid Stimulating Hormone (TSH) 0.558 uIu/ml (0.300-4.500) Bedside Lactic Acid Venous 2.21 mmol/L (0.90-1.70) Bedside D-Dimer 255 ng/mlFEU (0-450) Troponin I < 0.015 ng/ml (0-0.045) Laboratory results reviewed by me Medications Administered Medications (Trade) Dose Ordered Sig/Cecilia Route Start Time Stop Time Status Last Admin Dose Admin Ketorolac Tromethamine (Toradol Inj) 15 mg NOW STAT IV 05/26/17 15:12 05/26/17 15:14 DC 05/26/17 15:30 15 MG Sodium Chloride 1,000 ml @ 999 mls/hr Q1H1M STAT IV 05/26/17 15:40 05/26/17 16:40 DC 05/26/17 15:59 999 MLS/HR Ondansetron HCl (Zofran 8mg Iv) 8 mg NOW STAT IV 05/26/17 18:12 05/26/17 18:15 DC 05/26/17 18:25 8 MG Hydromorphone HCl (Dilaudid Inj) 0.5 mg NOW STAT IV 05/26/17 18:12 05/26/17 18:15 DC 05/26/17 18:24 0.5 MG Sodium Chloride 1,000 ml @ 125 mls/hr Q8H STAT IV 05/26/17 18:12 05/26/17 20:57 DC 05/26/17 18:24 125 MLS/HR Ceftriaxone Sodium (Rocephin Inj) 1 gm NOW STAT IV 05/26/17 18:52 05/26/17 19:26 DC 05/26/17 19:26 1 GM Vancomycin HCl 2000 mg/Sodium Chloride 540 ml @ 200 mls/hr ONE STAT IV 05/26/17 18:52 05/26/17 21:33 DC 05/26/17 21:24 200 MLS/HR ECG Indication: chest pain Rate (beats per minute): 112 Rhythm: sinus tachycardia Findings: nonspecific-ST abn, no acute ischemic change Comparison ECG Date: 03/10/2015 Change: Nonspecific-ST abnormalities are new Repeat EKG: Sinus tachycardia with a rate of 116, nonspecific-ST abnormality, no acute ischemic change - no significant change from previous EKG. ED Course 1505: The patient was evaluated in room A04B. A complete history and physical exam was performed. 151: Ordered Ketorolac Tromethamine 15mg IV 1540: Ordered Sodium Chloride 1000 ml @ 999 mls/hr IV 1601: I reevaluated the patient, and she is feeling better. She is still tachycardic. I updated her of her current exam findings. 170: I reevaluated the patient. She is feeling the same. Repeat examination presents RUQ tenderness. She is getting ready to go to ultrasound. 1809: I reevaluated the patient. She just got back from ultrasound. The patient is currently vomiting and is nauseous. She states that her pain has increased after the ultrasound. She is getting medication, an EKG, and a troponin. 181: Ordered Sodium Chloride 1000 ml @ 125 mls/hr IV, Hydromorphone HCl 0.5mg IV, Ondansetron HCl 8mg IV 1849: Upon reexamination, the patient was resting. Large area of erythema noted to be developing on the left flank, left upper quadrant, epigastrium, under the left breast. Concerning for cellulitis. The erythema was not present on the left flank on initial evaluation. I discussed the test results and treatment plan with her. The patient will be evaluated for further management. 1851: Ordered Vancomycin HCl 2000 mg/Sodium Chloride 540 ml @ 200 mls/hr IV, Ceftriaxone Sodium 1gm IV 1912: I discussed the patient's case with Dr. Tello, [facility] Hospitalist. The patient will be evaluated for further treatment and care. Medical Decision Triage Nursing notes reviewed. The patient's presentation and history were concerning for upper abdominal pain and chest pain. Etiologies such as PUD, biliary pathology, pancreatitis, mesenteric ischemia, cardiac sources, mediastinitis, appendicitis, diverticulitis, obstruction, inflammatory bowel disease, renal colic,aortic pathology, infections, genitourinary, UTI, perforated viscus, as well as others were entertained. The patient was evaluated. No acute ischemic change noted on ECG. Chest x-ray was performed and revealed no evidence of free air or pneumomediastinum. The patient was treated with a dose of IV Toradol and normal saline. This Toradol was for fever control. The patient was kept the patient's laboratory testing revealed an elevated lactate and white blood cell count. Her chemistry panel, LFTs, and lipase were unremarkable. Cardiac markers negative. D-dimer negative. CT imaging of the abdomen and pelvis was performed given the right upper quadrant tenderness on examination. This was unremarkable. Gallbladder ultrasound imaging was done which did not reveal any obvious sources. Upon reevaluation the patient was more nauseated and vomited. She had additional medication given as noted above. She then noted a rash developing on her abdomen and left flank. She notes no rash their present prior to Emergency Room arrival. On initial evaluation her left flank and CVA area had no erythema. On reevaluation there is a warm area of erythema that is spreading over the left upper abdominal wall, under the left breast, and on the left flank area. This is concerning for a rapidly developing cellulitis. There is no crepitus. She had no subcutaneous air or significant stranding noted on CT imaging from earlier. I saw no fluid collections in the abdominal wall or inferior breast. Vancomycin and Rocephin was given. Treatment in the hospital was recommended and the patient was in agreement. I consulted with Dr. Brooke of the hospitalist service. The patient was evaluated in the Emergency Room for further management. Consults Time Called: [id number] Consulting Physician: Melissa Branch Hospitalist Returned Call: [id number] I discussed the patient's case with Melissa Branch. The patient will be evaluated for further treatment and care. Impression Primary Impression: Cellulitis Additional Impression: Substernal chest pain Scribe Attestation The scribe's documentation has been prepared under my direction and personally reviewed by me in its entirety. I confirm that the note above accurately reflects all work, treatment, procedures, and medical decision making performed by me. Departure Information Dispostion Being Evaluated By Hospitalist Referrals Kendell Aguilar, D.OJonathan (PCP) Patient Instructions [facility] Problem Qualifiers"
[2017-05-26 23:39] VITALS: BP 123/77; PULSE 94; TEMP 37.3; O2SAT 93
[2017-05-27] VITALS (8 sets, daily range): BP systolic 130–143; BP diastolic 77–85; PULSE 83–111; TEMP 37.2–38.2; O2SAT 93–96
[2017-05-27] MEDS: ONDANSETRON INJ 2 MG/ML 2 ML VIAL IV PRN ×2 (03:52→11:38)
[2017-05-27] MEDS ORDERED: ACETAMINOPHEN 325 MG TAB PO ONE (04:32)
[2017-05-27] MEDS: METRONIDAZOLE / NSS 500 MG in PREMIXED NSS 100 ML IV SCH ×3 (04:54→20:52)
[2017-05-27 06:21] LABS: BASO % 0.1 %; BASO ABS # 0.01 K/uL (0-0.2); COMPLETE YES; IG% 0.2 %; LYMPH % 6.3 %; LYMPH ABS # 0.73 K/uL (1.2-3.4); MEAN CORPUSCULAR HEMOGLOBIN 29.7 pg (25-34); MEAN CORPUSCULAR HGB CONC 34.1 g/dl (32-36); MEAN PLATELET VOLUME 9.3 fL (7.4-10.4); MONO % 6.7 %; NEUT % 86.7 %; PLATELET COUNT 220 K/uL (130-400); RED BLOOD COUNT 3.91 M/uL (4.2-5.4); WHITE BLOOD COUNT 11.54 K/uL (4.8-10.8)
[2017-05-27 06:47] LABS: ESTIMATED AVERAGE GLUCOSE 117 mg/dl; HA1C FLAG Normal (Normal)
[2017-05-27 06:59] LABS: BUN/CREATININE RATIO 10.4 (10-20); CREATININE 0.6 mg/dl (0.60-1.20); POTASSIUM 3.7 mmol/L (3.5-5.1)
[2017-05-27] MEDS: ENOXAPARIN 40 MG/0.4 ML SYR SQ SCH (08:34)
[2017-05-27] MEDS: CEROVITE ADV FORMULA TAB PO SCH (08:34)
[2017-05-27] MEDS: DOXYCYCLINE IV 100 MG in DEXTROSE 5% 100ML 100 ML IV SCH ×2 (10:16→22:09)
[2017-05-27] MEDS ORDERED: NURSING VERBAL MED ORDER ONE (13:00)
[2017-05-27] MEDS ORDERED: PROMETHAZINE HCL INJ 12.5 MG in SODIUM CHLORIDE 0.9% 50ML 50 ML IV PRN (13:15)
--- NOTE | 2017-05-27 14:41 | Progress Note ---
Internal Med Progress Note Date of Service: May 27, 2017. Provider Documentation: SUBJECTIVE: Seen and examined at bedside States left sided rash on chest is more diffuse today but denies pain Noticed some vesicles today Pleuritic chest pain is much better Diarrhea resolved Denies SOB Reports intermittent rash on left chest secondary chronically since after radiation from lumpectomy OBJECTIVE: Vital Signs-as noted below Physical Exam: Vitals signs as noted above General Appearance:Moderately built and nourished, no apparent distress Head: normocephalic, Atraumatic Eyes: normal inspection, EOMI, PERRL Neck: supple, Trachea midline Respiratory/Chest: Normal breath sounds, CTA Cardiovascular: S1, S2, No murmur Abdomen/GI:Soft, Non tender, Bowel sounds present Extremities/Musculoskelatal:normal inspection, no edema Neurologic/Psych:AAOX3, grossly no focal neurological deficits Skin: normal color, warm. Erythematous rash below left side of breast and back , +Vesicles Lab data as noted below. ASSESSMENT & PLAN: Sepsis ? Cellulitis/Shingles of left lateral abdominal wall Reports Intermittent erythematous rash since radiation therapy after left breast lumpectomy To r/o C. difficile Leukocytosis improving Started to notice vesicles today but denies pain Continue Doxycycline. Will add Valacyclovir empirically Consulted Dermatology Stool for C.diff pending. no diarrhea since hospitalization Continue flagyl for now Lactic acid normalized H/O Breast cancer S/P lumpectomy and radiation therapy Ongoing hormonal therapy Hyperglycemia: A1C: 5.7 Monitor DVT px: Lovenox subQ. Code Status: Full code Vital Signs: Date Time Temp Pulse Resp B/P (MAP) Pulse Ox O2 Delivery O2 Flow Rate FiO2 05/27/17 15:00 37.5 95 18 139/83 (101) 94 05/27/17 11:41 37.3 05/27/17 08:00 Room Air 05/27/17 07:14 37.2 97 16 132/77 (95) 96 Room Air 05/27/17 06:16 37.4 05/27/17 04:09 38.2 111 20 130/83 (99) 95 Room Air 05/27/17 00:00 Room Air 05/26/17 23:39 37.3 94 20 123/77 (92) 93 Room Air 05/26/17 22:12 37.4 05/26/17 21:00 38.4 116 20 151/80 Room Air 05/26/17 20:45 114 18 118/84 94 05/26/17 20:39 37.9 114 18 118/84 94 Room Air 05/26/17 18:29 117 25 131/68 92 Room Air 05/26/17 17:02 37.8 100 20 128/77 100 Room Air 05/26/17 17:00 37.8 100 20 128/77 100 Room Air 05/26/17 15:16 109 05/26/17 15:06 99 Room Air Lab Results: Results Past 24 Hours Test 05/26/17 15:10 05/26/17 15:12 05/26/17 15:14 05/26/17 18:35 Range/Units White Blood Count 16.63 4.8-10.8 K/uL Red Blood Count 4.47 4.2-5.4 M/uL Hemoglobin 13.3 12.0-16.0 g/dL Hematocrit 39.2 37-47 % Mean Corpuscular Volume 87.7 80-100 fL Mean Corpuscular Hemoglobin 29.8 25-34 pg Mean Corpuscular Hemoglobin Concent 33.9 32-36 g/dl Platelet Count 277 130-400 K/uL Mean Platelet Volume 9.4 7.4-10.4 fL Neutrophils (%) (Auto) 84.5 % Lymphocytes (%) (Auto) 8.4 % Monocytes (%) (Auto) 6.4 % Eosinophils (%) (Auto) 0.4 % Basophils (%) (Auto) 0.1 % Neutrophils # (Auto) 14.04 1.4-6.5 K/uL Lymphocytes # (Auto) 1.40 1.2-3.4 K/uL Monocytes # (Auto) 1.07 0.11-0.59 K/uL Eosinophils # (Auto) 0.07 0-0.5 K/uL Basophils # (Auto) 0.01 0-0.2 K/uL RDW Standard Deviation 41.7 36.4-46.3 fL RDW Coefficient of Variation 12.9 11.5-14.5 % Immature Granulocyte % (Auto) 0.2 % Immature Granulocyte # (Auto) 0.04 0.00-0.02 K/uL Sodium Level 137 136-145 mmol/L Potassium Level 3.7 3.5-5.1 mmol/L Chloride Level 103 98-107 mmol/L Carbon Dioxide Level 26 21-32 mmol/L Anion Gap 8.0 3-11 mmol/L Blood Urea Nitrogen 10 7-18 mg/dl Creatinine 0.83 0.60-1.20 mg/dl Est Creatinine Clear Calc Drug Dose 94.8 ml/min Estimated GFR () 93.3 Estimated GFR (Non- 80.5 BUN/Creatinine Ratio 11.6 10-20 Random Glucose 166 70-99 mg/dl Estimated Average Glucose 117 mg/dl Hemoglobin A1c 5.7 4.5-5.6 % Calcium Level 9.2 8.5-10.1 mg/dl Magnesium Level 1.9 1.8-2.4 mg/dl Total Bilirubin 0.5 0.2-1 mg/dl Direct Bilirubin 0.1 0-0.2 mg/dl Aspartate Amino Transf (AST/SGOT) 20 15-37 U/L Alanine Aminotransferase (ALT/SGPT) 25 12-78 U/L Alkaline Phosphatase 94 45-117 U/L Total Creatine Kinase 114 26-192 U/L Creatine Kinase MB 1.2 0.5-3.6 ng/ml Creatine Kinase MB Ratio 1.1 0-3.0 Troponin I < 0.015 < 0.015 0-0.045 ng/ml Total Protein 7.6 6.4-8.2 gm/dl Albumin 3.7 3.4-5.0 gm/dl Lipase 135 73-393 U/L Thyroid Stimulating Hormone (TSH) 0.558 0.300-4.500 uIu/ml Bedside Lactic Acid Venous 2.21 0.90-1.70 mmol/L Bedside D-Dimer 255 0-450 ng/mlFEU Test 05/26/17 19:40 05/26/17 20:42 05/26/17 21:19 05/27/17 05:48 Range/Units Lactic Acid Level 2.0 0.4-2.0 mmol/L Urine Color YELLOW Urine Appearance CLEAR CLEAR Urine pH 7.5 4.5-7.5 Urine Specific Ackerman 1.043 1.000-1.030 Urine Protein NEG NEG Urine Glucose (UA) NEG NEG Urine Ketones NEG NEG Urine Occult Blood TRACE NEG Urine Nitrite NEG NEG Urine Bilirubin NEG NEG Urine Urobilinogen NEG NEG Urine Leukocyte Esterase NEG NEG Urine WBC (Auto) 0 0-5 /hpf Urine RBC (Auto) 0-4 0-4 /hpf Urine Hyaline Casts (Auto) 1-5 0-5 /lpf Urine Epithelial Cells (Auto) 5-10 0-5 /lpf Urine Bacteria (Auto) NEG NEG Prothrombin Time 10.8 9.0-12.0 SECONDS Prothromb Time International Ratio 1.0 0.9-1.1 White Blood Count 11.54 4.8-10.8 K/uL Red Blood Count 3.91 4.2-5.4 M/uL Hemoglobin 11.6 12.0-16.0 g/dL Hematocrit 34.0 37-47 % Mean Corpuscular Volume 87.0 80-100 fL Mean Corpuscular Hemoglobin 29.7 25-34 pg Mean Corpuscular Hemoglobin Concent 34.1 32-36 g/dl Platelet Count 220 130-400 K/uL Mean Platelet Volume 9.3 7.4-10.4 fL Neutrophils (%) (Auto) 86.7 % Lymphocytes (%) (Auto) 6.3 % Monocytes (%) (Auto) 6.7 % Eosinophils (%) (Auto) 0.0 % Basophils (%) (Auto) 0.1 % Neutrophils # (Auto) 10.01 1.4-6.5 K/uL Lymphocytes # (Auto) 0.73 1.2-3.4 K/uL Monocytes # (Auto) 0.77 0.11-0.59 K/uL Eosinophils # (Auto) 0.00 0-0.5 K/uL Basophils # (Auto) 0.01 0-0.2 K/uL RDW Standard Deviation 42.7 36.4-46.3 fL RDW Coefficient of Variation 13.4 11.5-14.5 % Immature Granulocyte % (Auto) 0.2 % Immature Granulocyte # (Auto) 0.02 0.00-0.02 K/uL Sodium Level 140 136-145 mmol/L Potassium Level 3.7 3.5-5.1 mmol/L Chloride Level 109 98-107 mmol/L Carbon Dioxide Level 25 21-32 mmol/L Anion Gap 6.0 3-11 mmol/L Blood Urea Nitrogen 6 7-18 mg/dl Creatinine 0.60 0.60-1.20 mg/dl Est Creatinine Clear Calc Drug Dose 131.2 ml/min Estimated GFR () 120.6 Estimated GFR (Non- 104.1 BUN/Creatinine Ratio 10.4 10-20 Random Glucose 129 70-99 mg/dl Calcium Level 8.0 8.5-10.1 mg/dl Microbiology Results 05/26/17 Blood Culture, Received Pending 05/26/17 Blood Culture, Received Pending
[2017-05-27] MEDS: TAMOXIFEN CITRATE 10 MG TAB PO SCH (20:53)
[2017-05-27] MEDS: ACETAMINOPHEN 325 MG TAB PO PRN (21:37)
[2017-05-28] VITALS (8 sets, daily range): BP systolic 119–137; BP diastolic 78–84; PULSE 78–87; TEMP 36.6–37.8; O2SAT 93–95
[2017-05-28] MEDS: METRONIDAZOLE / NSS 500 MG in PREMIXED NSS 100 ML IV SCH ×3 (04:51→20:41)
[2017-05-28] MEDS: ACETAMINOPHEN 325 MG TAB PO PRN (04:51)
[2017-05-28 06:20] LABS: HEMATOCRIT 35.6 % (37-47); MEAN CELL VOLUME 87.7 fL (80-100); MEAN CORPUSCULAR HEMOGLOBIN 28.8 pg (25-34); MEAN CORPUSCULAR HGB CONC 32.9 g/dl (32-36); MEAN PLATELET VOLUME 9.2 fL (7.4-10.4); PLATELET COUNT 214 K/uL (130-400); RED BLOOD COUNT 4.06 M/uL (4.2-5.4); WHITE BLOOD COUNT 8.39 K/uL (4.8-10.8)
[2017-05-28 06:53] LABS: BUN/CREATININE RATIO 12.9 (10-20); CALCIUM 8.8 mg/dl (8.5-10.1); CREATININE 0.52 mg/dl (0.60-1.20); POTASSIUM 3.5 mmol/L (3.5-5.1)
[2017-05-28] MEDS: CEROVITE ADV FORMULA TAB PO SCH (08:58)
[2017-05-28] MEDS: ENOXAPARIN 40 MG/0.4 ML SYR SQ SCH (09:00)
[2017-05-28] MEDS: DOXYCYCLINE IV 100 MG in DEXTROSE 5% 100ML 100 ML IV SCH ×2 (10:03→20:41)
--- NOTE | 2017-05-28 16:04 | Progress Note ---
Internal Med Progress Note Date of Service: May 28, 2017. Provider Documentation: SUBJECTIVE: Seen and examined at bedside Febrile this morning Noticed some vesicles on back and below left breast Reports some burning sensation Denies SOB, CP, diarrhea, ABD pain Family at bedside OBJECTIVE: Vital Signs-as noted below Physical Exam: Vitals signs as noted above General Appearance:Moderately built and nourished, no apparent distress Head: normocephalic, Atraumatic Eyes: normal inspection, EOMI, PERRL Neck: supple, Trachea midline Respiratory/Chest: Normal breath sounds, CTA Cardiovascular: S1, S2, No murmur Abdomen/GI:Soft, Non tender, Bowel sounds present Extremities/Musculoskelatal:normal inspection, no edema Neurologic/Psych:AAOX3, grossly no focal neurological deficits Skin: normal color, warm. Erythematous rash below left side of breast and back , +Vesicles Lab data as noted below. ASSESSMENT & PLAN: Sepsis ? Cellulitis/Shingles of left lateral abdominal wall/back Reports Intermittent erythematous rash since radiation therapy after left breast lumpectomy diarrhea resolved Will DC flagyl Leukocytosis improving Noticed more vesicles on back today and complains of some burning pain Continue Doxycycline, Valacyclovir for now Serology pending Consulted Dermatology Lactic acid normalized H/O Breast cancer S/P lumpectomy and radiation therapy Ongoing hormonal therapy Hyperglycemia: A1C: 5.7 Monitor DVT px: Lovenox subQ. Code Status: Full code Vital Signs: Date Time Temp Pulse Resp B/P (MAP) Pulse Ox O2 Delivery O2 Flow Rate FiO2 05/28/17 15:34 37.0 82 18 135/84 (101) 95 Room Air 05/28/17 08:00 Room Air 05/28/17 07:38 36.9 87 18 119/78 (92) 94 05/28/17 06:50 36.6 05/28/17 04:14 37.8 84 20 126/80 (95) 93 Room Air 05/28/17 00:17 37.2 05/28/17 00:00 Room Air 05/27/17 23:51 37.9 87 20 143/82 (102) 93 Room Air 05/27/17 21:31 37.8 83 18 136/85 (102) 93 Room Air Lab Results: Results Past 24 Hours Test 05/27/17 20:30 05/28/17 05:45 Range/Units White Blood Count 8.39 4.8-10.8 K/uL Red Blood Count 4.06 4.2-5.4 M/uL Hemoglobin 11.7 12.0-16.0 g/dL Hematocrit 35.6 37-47 % Mean Corpuscular Volume 87.7 80-100 fL Mean Corpuscular Hemoglobin 28.8 25-34 pg Mean Corpuscular Hemoglobin Concent 32.9 32-36 g/dl RDW Standard Deviation 42.6 36.4-46.3 fL RDW Coefficient of Variation 13.3 11.5-14.5 % Platelet Count 214 130-400 K/uL Mean Platelet Volume 9.2 7.4-10.4 fL Sodium Level 139 136-145 mmol/L Potassium Level 3.5 3.5-5.1 mmol/L Chloride Level 107 98-107 mmol/L Carbon Dioxide Level 27 21-32 mmol/L Anion Gap 5.0 3-11 mmol/L Blood Urea Nitrogen 7 7-18 mg/dl Creatinine 0.52 0.60-1.20 mg/dl Est Creatinine Clear Calc Drug Dose 151.4 ml/min Estimated GFR () 126.4 Estimated GFR (Non- 109.1 BUN/Creatinine Ratio 12.9 10-20 Random Glucose 104 70-99 mg/dl Calcium Level 8.8 8.5-10.1 mg/dl
[2017-05-28] MEDS: TAMOXIFEN CITRATE 10 MG TAB PO SCH (20:40)
[2017-05-29] VITALS: O2SAT 95
[2017-05-29 06:10] LABS: HEMATOCRIT 36.3 % (37-47); MEAN CELL VOLUME 87.1 fL (80-100); MEAN CORPUSCULAR HEMOGLOBIN 28.3 pg (25-34); MEAN CORPUSCULAR HGB CONC 32.5 g/dl (32-36); MEAN PLATELET VOLUME 8.8 fL (7.4-10.4); PLATELET COUNT 218 K/uL (130-400); RED BLOOD COUNT 4.17 M/uL (4.2-5.4); WHITE BLOOD COUNT 5.98 K/uL (4.8-10.8)
[2017-05-29 06:41] LABS: BUN/CREATININE RATIO 16.1 (10-20); CALCIUM 8.2 mg/dl (8.5-10.1); CREATININE 0.55 mg/dl (0.60-1.20); POTASSIUM 3.7 mmol/L (3.5-5.1)
[2017-05-29 07:13] VITALS: BP 124/81; PULSE 81; TEMP 37.3; O2SAT 93
[2017-05-29 08:00] VITALS: O2SAT 95
--- NOTE | 2017-05-29 08:36 | Dermatology Consultation ---
"Dermatology Consultation Date of Consultation: May 29, 2017. Attending Physician: Charles Zhang MD Reason for Consultation: Rash on left side History of Present Illness Patient is a 52 year old female admitted 2 days prior for fever. She notes that after being admitted from the ED she noticed a rash on her left side. Small blisters. Noted yesterday that there was some burning. However, is otherwise asymptomatic. Had an episode of shingles a year ago. At that time she had significant burning and itching. However, no such symptoms this time. Also notes she received zoster vaccine earlier this year. Has a hx of radiation to left breast and occasionally develops a rash under left breast in radiation area. Does not recall any recent sunburns or new medications. Also does not recall any new exposures. PCR for VZ was done once rash was seen by primary team. Results are pending Past Medical/Surgical History Medical Problems: (1) Cellulitis Status: Acute (2) Substernal chest pain Status: Acute Family History Cancer Diabetes mellitus Gallbladder disease Heart disease Hypertension Kidney disease Kidney stones Social History Smoking Status: Former Smoker Smokeless Tobacco Use: No Marital Status: Housing Status: lives with significant other Occupation Status: employed Allergies Coded Allergies: Diphtheria Toxoid (Verified Adverse Reaction, Intermediate, SWELLING, 05/26) Tetanus Toxoid (Verified Adverse Reaction, Intermediate, SWELLING, 05/26/17 ) Home Medications Scheduled Multiple Vitamins W/ Minerals (Centrum Silver Ultra [place]), 1 TAB PO QAM Tamoxifen Citrate (Tamoxifen Citrate), 20 MG PO QPM Vitamin E (Vitamin E), 400 INTUNIT PO BID Scheduled PRN Fluticasone Propionate (Fluticasone Propionate), 2 SPRAYS NA DAILY PRN for Nasal Congestion Loratadine (Claritin), 10 MG PO DAILY PRN for Nasal Congestion Nystatin/Triamcinolone (Mycogen || ), 1 APPLN TOP BID PRN for Affected Skin Folds Ranitidine Hcl (Zantac), 150 MG PO DAILY PRN for Heartburn Inpatient Medications Current Inpatient Medications Medications (Trade) Dose Ordered Sig/Cecilia Route Start Time Stop Time Status Last Admin Dose Admin Ioversol (Optiray 320) 111 ml UD PRN IV 05/26/17 16:00 05/30/17 15:59 Fluticasone Propionate (Flonase Nasal Logan) 2 sprays DAILY PRN NA 05/26/17 20:00 06/25/17 19:59 Loratadine (Claritin Tab) 10 mg DAILY PRN PO 05/26/17 20:00 06/25/17 19:59 Multivitamins/ Minerals (Multivitamin W/ Minerals Tab) 1 tab QAM PO 05/27/17 08:00 06/26/17 08:59 05/28/17 08:58 1 TAB Ranitidine HCl (zANTac TAB) 150 mg DAILY PRN PO 05/26/17 20:00 06/25/17 19:59 Tamoxifen Citrate (Nolvadex Tab) 20 mg QPM PO 05/26/17 21:00 06/25/17 20:59 05/28/17 20:40 20 MG Doxycycline Hyclate 100 mg/ Dextrose 110 ml @ 50 mls/hr Q12H IV 05/26/17 21:00 06/05/17 20:59 05/28/17 20:41 50 MLS/HR Ketorolac Tromethamine (Toradol Inj) 30 mg Q6H PRN IV 05/26/17 20:00 05/31/17 19:59 Ibuprofen (Advil Tab) 400 mg Q6H PRN PO 05/26/17 20:00 06/25/17 19:59 Ondansetron HCl (Zofran Inj) 4 mg Q6H PRN IV 05/26/17 20:00 06/25/17 19:59 05/27/17 11:38 4 MG Lorazepam (Ativan Inj) 0.5 mg Q4H PRN IV 05/26/17 20:00 06/25/17 19:59 Tramadol HCl (Ultram Tab) not relieved by tylenol @ Q6H PRN PO 05/26/17 20:00 06/25/17 19:59 Hydromorphone HCl (Dilaudid Inj) 0.5 mg Q3H PRN IV 05/26/17 20:00 06/09/17 19:59 Enoxaparin Sodium (Lovenox Inj) 40 mg Q24H SQ 05/27/17 09:00 06/26/17 08:59 05/28/17 09:00 40 MG Acetaminophen (Tylenol Tab) 650 mg Q4H PRN PO 05/26/17 20:00 06/25/17 19:59 05/28/17 04:51 650 MG Lorazepam 0.5 mg/ Syringe 1 ml @ 1 mls/min Q4H PRN IV 05/26/17 20:30 06/25/17 20:29 Promethazine HCl 12.5 mg/Sodium Chloride 50.5 ml @ 202 mls/hr Q6H PRN IV 05/27/17 13:15 06/26/17 13:14 05/27/17 13:29 202 MLS/HR Valacyclovir HCl (Valtrex Tab) 1,000 mg Q8 PO 05/27/17 15:00 06/03/17 14:59 05/29/17 06:10 1,000 MG Physical Exam Date Time Temp Pulse Resp B/P (MAP) Pulse Ox O2 Delivery O2 Flow Rate FiO2 05/29/17 07:13 37.3 81 18 124/81 (95) 93 Room Air 05/29/17 00:00 95 Room Air 05/28/17 23:00 37.2 78 18 124/79 (94) 94 Room Air 05/28/17 20:11 37.6 83 20 137/82 (100) 93 Room Air 05/28/17 20:00 95 Room Air 05/28/17 16:00 Room Air 05/28/17 15:34 37.0 82 18 135/84 (101) 95 Room Air Full skin exam performed including face (including lips & lids), neck, chest, abdomen, back, bilateral upper extremities (including arm, hands and fingers), and bilateral lower extremities (including legs, feet and toes) and was normal except the following: Left side: small coalescing vesicle with some surrounding pink patches Central lower back: small pink papules and vesicles Left inframammary area: pink patches Skin: + rash Laboratory Results Last 24 Hours Test 05/29/17 05:51 White Blood Count 5.98 K/uL Red Blood Count 4.17 M/uL Hemoglobin 11.8 g/dL Hematocrit 36.3 % Mean Corpuscular Volume 87.1 fL Mean Corpuscular Hemoglobin 28.3 pg Mean Corpuscular Hemoglobin Concent 32.5 g/dl RDW Standard Deviation 42.2 fL RDW Coefficient of Variation 13.2 % Platelet Count 218 K/uL Mean Platelet Volume 8.8 fL Sodium Level 144 mmol/L Potassium Level 3.7 mmol/L Chloride Level 109 mmol/L Carbon Dioxide Level 28 mmol/L Anion Gap 7.0 mmol/L Blood Urea Nitrogen 9 mg/dl Creatinine 0.55 mg/dl Est Creatinine Clear Calc Drug Dose 143.1 ml/min Estimated GFR () 124.1 Estimated GFR (Non- 107.1 BUN/Creatinine Ratio 16.1 Random Glucose 100 mg/dl Calcium Level 8.2 mg/dl Assessment & Plan 52 year old female with rash on left side, back and inframammary area. Differential diagnosis includes contact dermatitis (allergic vs irritant), radiation recall dermatitis and to a lesser extent herpes zoster. Clinical appearance, distribution, the lack of significant pain and burning and her recent hx of zoster and having received vaccine makes it less likely. However, VZV PCR is pending which will help with diagnosis. Patient is already on valcyclovir. Continue course of 1 g three times per day for 7 days. Triamcinolone 0.1% cream twice a day to affected areas. Patient to follow up with dermatology as an outpatient in 2-3 weeks."
[2017-05-29] MEDS: CEROVITE ADV FORMULA TAB PO SCH (09:04)
[2017-05-29] MEDS: ENOXAPARIN 40 MG/0.4 ML SYR SQ SCH (09:06)
[2017-05-29] MEDS: DOXYCYCLINE IV 100 MG in DEXTROSE 5% 100ML 100 ML IV SCH (10:49)
--- NOTE | 2017-05-29 14:37 | Progress Note ---
Internal Med Progress Note Date of Service: May 29, 2017. Provider Documentation: SUBJECTIVE: Seen and examined at bedside Feels better Afebrile vesicles on back and below left breast improving Denies pain Denies SOB, CP, diarrhea, ABD pain Family at bedside OBJECTIVE: Vital Signs-as noted below Physical Exam: Vitals signs as noted above General Appearance:Moderately built and nourished, no apparent distress Head: normocephalic, Atraumatic Eyes: normal inspection, EOMI, PERRL Neck: supple, Trachea midline Respiratory/Chest: Normal breath sounds, CTA Cardiovascular: S1, S2, No murmur Abdomen/GI:Soft, Non tender, Bowel sounds present Extremities/Musculoskelatal:normal inspection, no edema Neurologic/Psych:AAOX3, grossly no focal neurological deficits Skin: normal color, warm. Erythematous rash below left side of breast and back , +Vesicles Lab data as noted below. ASSESSMENT & PLAN: Sepsis ? Cellulitis/Shingles of left lateral abdominal wall/back DD:contact dermatitis (allergic vs irritant), radiation recall dermatitis and to a lesser extent herpes zoster. Reports Intermittent erythematous rash since radiation therapy after left breast lumpectomy diarrhea resolved flagyl discontinued Leukocytosis resolved Continue Doxycycline, Valacyclovir for now Serology for Herpes pending Appreciate Dermatology Input Lactic acid normalized H/O Breast cancer S/P lumpectomy and radiation therapy Ongoing hormonal therapy Hyperglycemia: A1C: 5.7 Monitor DVT px: Lovenox subQ. Code Status: Full code Plan to discharge home today Follow up with your PCP on 05/31/17 at 10:55am Follow up with your life support technician in 2-3 weeks as advised Seek immediate medical attention if your symptoms reoccur or worsen complete the antibiotic and antiviral medication as prescribed Vital Signs: Date Time Temp Pulse Resp B/P (MAP) Pulse Ox O2 Delivery O2 Flow Rate FiO2 05/29/17 08:00 95 Room Air 05/29/17 07:13 37.3 81 18 124/81 (95) 93 Room Air 05/29/17 00:00 95 Room Air 05/28/17 23:00 37.2 78 18 124/79 (94) 94 Room Air 05/28/17 20:11 37.6 83 20 137/82 (100) 93 Room Air 05/28/17 20:00 95 Room Air 05/28/17 16:00 Room Air 05/28/17 15:34 37.0 82 18 135/84 (101) 95 Room Air Lab Results: Results Past 24 Hours Test 05/29/17 05:51 Range/Units White Blood Count 5.98 4.8-10.8 K/uL Red Blood Count 4.17 4.2-5.4 M/uL Hemoglobin 11.8 12.0-16.0 g/dL Hematocrit 36.3 37-47 % Mean Corpuscular Volume 87.1 80-100 fL Mean Corpuscular Hemoglobin 28.3 25-34 pg Mean Corpuscular Hemoglobin Concent 32.5 32-36 g/dl RDW Standard Deviation 42.2 36.4-46.3 fL RDW Coefficient of Variation 13.2 11.5-14.5 % Platelet Count 218 130-400 K/uL Mean Platelet Volume 8.8 7.4-10.4 fL Sodium Level 144 136-145 mmol/L Potassium Level 3.7 3.5-5.1 mmol/L Chloride Level 109 98-107 mmol/L Carbon Dioxide Level 28 21-32 mmol/L Anion Gap 7.0 3-11 mmol/L Blood Urea Nitrogen 9 7-18 mg/dl Creatinine 0.55 0.60-1.20 mg/dl Est Creatinine Clear Calc Drug Dose 143.1 ml/min Estimated GFR () 124.1 Estimated GFR (Non- 107.1 BUN/Creatinine Ratio 16.1 10-20 Random Glucose 100 70-99 mg/dl Calcium Level 8.2 8.5-10.1 mg/dl
[2017-05-29] MEDS ORDERED: VLT500 PO (14:41)
[2017-05-29] MEDS ORDERED: TRMCR180 EXT (14:41)
[2017-05-29] MEDS ORDERED: DXY100 PO (14:41)
--- NOTE | 2017-05-29 14:43 | Discharge Summary ---
Discharge Summary Date of Service May 29, 2017. Discharge Summary Admission Date: May 26, 2017 at 19:26 Discharge Date: May 29, 2017 Discharge Disposition: Home Principal Diagnosis: Sepsis Procedures: CT abd: No significant abnormality identified within the abdomen or pelvis. Gall baldder USD: 1. Significantly limited study from a technical standpoint 2. No gallstones identified 3. No evidence of ductal dilatation 4. Increased hepatic echogenicity, a nonspecific finding most likely secondary to hepatic steatosis CXR: No acute cardiopulmonary disease. Consultations: Dermatology Pending Studies/Follow-Up: Follow up with your PCP on 05/31/17 at 10:55am Follow up with your silk spotter in 2-3 weeks as advised Seek immediate medical attention if your symptoms reoccur or worsen complete the antibiotic and antiviral medication as prescribed Medication Reconciliation New Medications: Doxycycline Hyclate (Doxycycline Hyclate) 100 Mg Cap 100 MG PO BID for 5 Days, #10 CAP Triamcinolone Acet (Aristocort 0.1%) 240 Appln/80 Gm Cr 1 APPLN EXT BID for 10 Days, #1 EA 1 Refill Valacyclovir HCl (Valacyclovir HCl) 500 Mg Tab 1000 MG PO Q8 for 4 Days, #24 TAB Continued Medications: Fluticasone Propionate (Fluticasone Propionate) 120 Sprays/6000 Mcg Inha 2 SPRAYS NA DAILY PRN for Nasal Congestion, #16 Loratadine (Claritin) 10 Mg Tab 10 MG PO DAILY PRN for Nasal Congestion, TAB Multiple Vitamins W/ Minerals (Centrum Silver Ultra Wome) 1 Tab Tab 1 TAB PO QAM Nystatin/Triamcinolone (Mycogen || ) Cr 1 APPLN TOP BID PRN for Affected Skin Folds Ranitidine Hcl (Zantac) 150 Mg Tab 150 MG PO DAILY PRN for Heartburn, TAB Tamoxifen Citrate (Tamoxifen Citrate) 10 Mg Tab 20 MG PO QPM, TAB Vitamin E (Vitamin E) 400 Unit Tab 400 INTUNIT PO BID Admission Information HPI (per Admitting provider): CHIEF COMPLAINT: Chest discomfort. HISTORY OF PRESENT ILLNESS: Medical history significant for breast cancer L status post surgery, radiation , ongoing hormonal therapy, GERD, hx of herpes zoster. Recent confinement March of 2015 under Orthopedic surgeries for carpal tunnel surgery. Today, the patient woke up not feeling well, indigestion sx, diarrhea, nonbloody , chest discomfort going to the back, pleuritic, nausea, vomiting. Fever noted. At the Emergency Room, a painful rash without blisters was noted on the left flank/L ant abd similar to location of shingles but not as painful as per patient. Patient given IV Vancomycin, Ceftriaxone for sepsis. Physical Exam (per Admitting): PHYSICAL EXAMINATION: VITAL SIGNS: Blood pressure was noted to be 128/77, pulse rate 117, RR 25, T 38 sats 98% on room air. GENERAL: Noted to be uncomfortable, obese, no respiratory distress. SKIN: Normal color. HEENT: [place] palpebral conjunctivae. Dry mucosa. NECK: Short neck. LUNGS: Decreased effort. HEART: Tachycardic. ABDOMEN: induration on the left anterior abdomen going to the flank, tender and warm. EXTREMITIES: Minimal LE edema. No tenderness NEUROLOGIC: No gross focality. Hospital Course Sepsis ? Cellulitis/Shingles of left lateral abdominal wall/back DD:contact dermatitis (allergic vs irritant), radiation recall dermatitis and to a lesser extent herpes zoster. Reports Intermittent erythematous rash since radiation therapy after left breast lumpectomy diarrhea resolved flagyl discontinued Leukocytosis resolved Continue Doxycycline, Valacyclovir for now Serology for Herpes pending Appreciate Dermatology Input Lactic acid normalized H/O Breast cancer S/P lumpectomy and radiation therapy Ongoing hormonal therapy Hyperglycemia: A1C: 5.7 Monitor DVT px: Lovenox subQ. Code Status: Full code Plan to discharge home today Follow up with your PCP on 05/31/17 at 10:55am Follow up with your silk spotter in 2-3 weeks as advised Seek immediate medical attention if your symptoms reoccur or worsen complete the antibiotic and antiviral medication as prescribed Total time spent on discharge = 36 minutes This includes examination of the patient, discharge planning, medication reconciliation, and communication with other providers. Discharge Instructions Discharge Instructions Date of Service May 29, 2017. Admission Reason for Admission: Sepsis Discharge Discharge Diagnosis / Problem: Sepsis Discharge Goals Goal(s): Decrease discomfort, Improve function Activity Recommendations Activity Limitations: resume your previous activity Exercise/Sports Limitations: as tolerated . Instructions / Follow-Up Instructions / Follow-Up Follow up with your PCP on 05/31/17 at 10:55am Follow up with your silk spotter in 2-3 weeks as advised Seek immediate medical attention if your symptoms reoccur or worsen complete the antibiotic and antiviral medication as prescribed Current Hospital Diet Patient's current hospital diet: Regular Diet Discharge Diet Recommended Diet: Regular Diet Pending Studies Studies pending at discharge: yes List of pending studies: Viral serology Laboratory Results Hemoglobin A1c Test 05/26/17 15:10 Range/Units Estimated Average Glucose 117 mg/dl Hemoglobin A1c 5.7 H 4.5-5.6 % Work Instructions Return To Work: after follow-up (Can return to work after follow up with your Primary Care physician on 05/31/17) Medical Emergencies . Who to Call and When: Medical Emergencies: If at any time you feel your situation is an emergency, please call 911 immediately. . Non-Emergent Contact Non-Emergency issues call your: Primary Care Provider, Specialist ( Security Officer) Call Non-Emergent contact if: you have a fever, your pain is not controlled, your pain is worsening, your pain is unusual for you, your pain is concerning you, you have any medication questions Seek immediate medical attention if your symptoms reoccur or worsen . . "Provider Documentation" section prepared by Charles Zhang. . VTE Core Measure Inpt VTE Proph given/why not?: Enoxaparin (Lovenox)SQ <Electronically signed by Charles Zhang MD> Signed: 05/29/17 1443 Signed: The status of this report is Signed * If report status is Draft, the document has not been finalized by the responsible provider.
[2017-05-29 15:07] VITALS: BP 124/81; PULSE 81; TEMP 37.3; O2SAT 95
[2017-05-29 16:11] VITALS: BP 132/84; PULSE 82; TEMP 36.9; O2SAT 92
[2017-05-29] MEDS ORDERED: TRIAMCINOLONE ACET 0.1% CR 80 GM TUBE EXT SCH (20:00)
[2017-05-31 16:35] LABS: VARICELLA ZOSTER DNA PCR QUAL Not Detected (Not Detected); VZ DNA SOURCE Swab
== END 2017-05-29 17:15 | disposition home or self-care (01) | DRG 872 ==
LOC: C.EDB 14:49 → C.4E 19:26 → ENRESERV 19:47
PROVIDERS: ADMIT Internal Medicine; ATTEND Internal Medicine
DX: A41.9 Sepsis, unspecified organism (principal); L03.311 Cellulitis of abdominal wall; B02.8 Zoster with other complications; I10 Essential (primary) hypertension; Z87.891 Personal history of nicotine dependence; Z92.3 Personal history of irradiation; R73.9 Hyperglycemia, unspecified; L25.9 Unspecified contact dermatitis, unspecified cause; Z79.890 Hormone replacement therapy; Z85.3 Personal history of malignant neoplasm of breast

== ENCOUNTER → 2017-06-22 | Outpatient (CLI) | payer OTHER ==
[~2017-06-22] MED LIST changes: +DXY100 PO; +FLNIN/; -FLUT0.0529 NAE; +TRMCR180 EXT; +VLT500 PO
--- NOTE | 2017-06-22 13:41 | MAMMOGRAPHY REPORT ---
BILATERAL DIGITAL DIAGNOSTIC MAMMOGRAM TOMOSYNTHESIS WITH CAD: 06/22/2017 CLINICAL HISTORY: Close follow-up of calcifications in the left breast. Also time of annual bilatera l screening exam. 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 Margins were reported as negative. 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 TECHNIQUE: Bilateral breast tomosynthesis in addition to standard 2D mammography was performed. Spot magnification left CC and ML views were also obtained. Current study was also evaluated with a Comp uter Aided Detection (CAD) system. COMPARISON: Comparison is made to exams dated: 06/21/2016 mammogram, 12/17/2015 mammogram, 06/17/2015 m ammogram, 01/14/2015 ultrasound, 12/31/2014 breast MRI, and 12/16/2014 mammogram - [facility]. BREAST COMPOSITION: There are scattered areas of fibroglandular density in both breasts. FINDINGS: The full-field views of the breasts are similar to prior mammograms. The parenchymal patte rn is unchanged. There is evidence of prior surgery in the 12:00 left breast, with expected architec tural distortion and 2 biopsy marker clips remaining in place. There are calcifications located betw een the biopsy marker clips, best seen on the spot magnification views. Some of the calcifications d emonstrate lucent centers and are coarsening comparing to prior exams, confirming benign dystrophic c alcification. Other more punctate and amorphous microcalcifications are similar in number and distri bution comparing back to at least 2015, therefore likely benign. No new calcifications are currently identified. No new suspicious mass, architectural distortion or cluster of microcalcifications is s een elsewhere in the breasts. IMPRESSION: ACR-BI-RADS CATEGORY 3: PROBABLY BENIGN Stable mammographic appearance of the breasts including 2 stable biopsy marker clips and calcificatio ns in the 12:00 middle one third of the left breast. 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 Annual right mammogra phy will also be due at that time. These results and recommendations were discussed with the patient at the time of the exam. Approximately 10% of breast cancers are not detected with mammography. A negative mammographic report should not delay biopsy if a clinically suggestive mass is present. Ruth Chandra M.D. ay/:06/22/2017 12:06:28 Airplane Flight Attendant Supervisor: Iris MELVIN(R)(Marian), [facility] letter sent: Follow Up Recommended 3 BI-RADS Code: ACR-BI-RADS Category 3: Probably Benign
== END | disposition home or self-care (01) ==
LOC: C.MAMM 11:14
PROVIDERS: ATTEND Internal Medicine Hematology & Oncology
DX: D05.10 Intraductal carcinoma in situ of unspecified breast (principal); R92.1 Mammographic calcification found on diagnostic imaging of breast

== ENCOUNTER → 2018-01-11 | Outpatient (CLI) | payer OTHER ==
[~2018-01-11] MED LIST changes: -TAMO10TA25 PO; +TAMO10TA9 PO
== END | disposition home or self-care (01) ==
LOC: C.PAPS 13:49
PROVIDERS: ATTEND Obstetrics & Gynecology
DX: N87.1 Moderate cervical dysplasia (principal)

== ENCOUNTER → 2018-01-23 | Outpatient (CLI) | payer OTHER | END | disposition home or self-care (01) | LOC: C.LAB 08:51 | PROVIDERS: ATTEND Family Medicine | DX: Z13.220 Encounter for screening for lipoid disorders (principal); Z13.1 Encounter for screening for diabetes mellitus ==

== ENCOUNTER → 2018-04-06 | Outpatient (CLI) | payer OTHER ==
[~2018-04-06] MED LIST changes: +PRLSR20 PO
[2018-04-06 13:03] VITALS: BP 120/78; PULSE 85; TEMP 36.6; O2SAT 96
--- NOTE | 2018-04-06 13:41 | Radiation Oncology Follow-Up ---
"Radiation Oncology Follow-Up Date of Visit Apr 06, 2018. Reason For Visit annual follow up Radiation Completion Date finished 09-26-2013 Diagnosis (1) Carcinoma of left breast Status: Resolved Onset Date: 06/22/2013 Histology Subtype: DCIS Stage: 0 Permanent Comment: Abnormal left breast mammogram Status post stereotactic core needle biopsy 05/31/2013 revealing atypical intraductal hyperplasia Status post excisional biopsy 06/22/2013 revealing low-grade DCIS Status post completion of radiation therapy 09/26/2013 received 5040 cGy Last Edited By: Lexi Durant on Dec 21, 2016 16:03 Interim History She has been doing well over this past year in regards to her breast. She is noted no masses or tenderness and no change of the axilla. She is up-to-date on mammography. She was ill in May was hospitalized. She had sepsis of unknown origin. She was treated and recovered. She has had no recurrence or problems since. She continues on tamoxifen and had no complaints of side effects. Allergies Coded Allergies: Diphtheria Toxoid (Verified Adverse Reaction, Intermediate, SWELLING, 05/26) Tetanus Toxoid (Verified Adverse Reaction, Intermediate, SWELLING, 05/26/17 ) Home Medications Scheduled Multiple Vitamins W/ Minerals (Centrum Silver Ultra Wome), 1 TAB PO QAM Omeprazole (Prilosec), 20 MG PO DAILY Tamoxifen Citrate (Tamoxifen Citrate), 20 MG PO QPM Triamcinolone Acet (Aristocort 0.1%), 1 APPLN EXT BID Vitamin E (Vitamin E), 400 INTUNIT PO BID Scheduled PRN Fluticasone Propionate (Fluticasone Propionate), 2 SPRAYS NA DAILY PRN for Nasal Congestion Loratadine (Claritin), 10 MG PO DAILY PRN for Nasal Congestion Nystatin/Triamcinolone (Mycogen || ), 1 APPLN TOP BID PRN for Affected Skin Folds Review of Systems Gastrointestinal: Symptoms: WNL Oral: Symptoms: No Problems Respiratory: Symptoms: WNL Urinary: Symptoms: WNL Comments: occ nocturia Skin: Symptoms: No Problems Other Skin Symptoms: under left breast skin is pink since had rash there Breast: Right Upper Arm Measurement: 38.5 Right Mid Arm Measurement: 29.5 Right Wrist Measurement: 16.6 Left Upper Arm Measurement: 36.5 Left Mid Arm Measurement: 29.5 Left Wrist Measurement: 15.0 Arm Dominence: Right Patient Cosmetic Evaluation: Excellent Staff Cosmetic Evalaluation: Excellent Physical Exam Vital Signs Date Time Temp Pulse Resp B/P (MAP) Pulse Ox O2 Delivery O2 Flow Rate FiO2 04/06/18 13:03 36.6 85 16 120/78 96 Fatigue: None General Appearance: no apparent distress Eyes: normal inspection, EOMI ENT: normal ENT inspection, hearing grossly normal Neck: supple, no adenopathy, thyroid normal Respiratory/Chest: lungs clear, no respiratory distress, no accessory muscle use Breast: Breast examination reveals well-healed incision of the left breast. There are no masses or tenderness and no axillary adenopathy. She has no skin retractions or nipple changes. Using the [place] score cosmesis she has an excellent outcome. The right breast showed no masses or tenderness and no axillary adenopathy. Cardiovascular: regular rate, rhythm, no gallop, no murmur Extremities: no pedal edema Neurologic/Psychiatric: no motor/sensory deficits, alert, normal mood/affect Skin: warm/dry Pain Management Patient Reports Pain: No Side: Bilateral Pain Location: None Patient Preferred Pain Scale: 0 - 10 Initial Pain Intensity: 0.0 Pain Management Plan She denies pain therefore requires no pain management. Laboratory Laboratory Results: not applicable Pathology Pathology Results: not applicable Imaging Imaging Studies: were reviewed, and pertinent findings noted below Imaging Comments Patient: JENNIFER PAEZ [facility] Rec: [id number] Address1: [address] Address2: [facility] ID: [id number] Date: 1965 Sex: F Ref Phy: Kendell Aguilar D.O. Att Phy: Inocente Enriquez D.O. Terri Phy: Kendell Aguilar D.O. Inter Phy: Ruth Chandra MD [facility] Zip: [place] [address] SC: [id number] Report #: [id number] Guest Service Host: ERIC Diagnosis: 12 MO F/U LT BREAST CA Service Date: 06/22/17 MNE: [id number] Ordering Dr: Inocente Enriquez D.O. CC: Inocente Enriquez D.O. CONF: DICTATED BY: Ruth Chandra MD MAMMOGRAPHY REPORT BILATERAL DIGITAL DIAGNOSTIC MAMMOGRAM TOMOSYNTHESIS WITH CAD: 06/22/2017 CLINICAL HISTORY: Close follow-up of calcifications in the left breast. Also time of annual bilateral screening exam. 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 Margins were reported as negative. 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 TECHNIQUE: Bilateral breast tomosynthesis in addition to standard 2D mammography was performed. Spot magnification left CC and ML views were also obtained. Current study was also evaluated with a Computer Aided Detection (CAD ) system. COMPARISON: Comparison is made to exams dated: 06/21/2016 mammogram, 12/17/2015 mammogram, 06/17/2015 mammogram, 01/14/2015 ultrasound, 12/31/2014 breast MRI, and mammogram - [facility]. BREAST COMPOSITION: There are scattered areas of fibroglandular density in both breasts. FINDINGS: The full-field views of the breasts are similar to prior mammograms. The parenchymal pattern is unchanged. There is evidence of prior surgery in the 12:00 left breast, with expected architectural distortion and 2 biopsy marker clips remaining in place. There are calcifications located between the biopsy marker clips, best seen on the spot magnification views. Some of the calcifications demonstrate lucent centers and are coarsening comparing to prior exams, confirming benign dystrophic calcification. Other more punctate and amorphous microcalcifications are similar in number and distribution comparing back to at least 2014, therefore likely benign. No new calcifications are currently identified. No new suspicious mass, architectural distortion or cluster of microcalcifications is seen elsewhere in the breasts. IMPRESSION: ACR-BI-RADS CATEGORY 3: PROBABLY BENIGN Stable mammographic appearance of the breasts including 2 stable biopsy marker clips and calcifications in the 12:00 middle one third of the left breast. 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 Annual right mammography will also be due at that time. These results and recommendations were discussed with the patient at the time of the exam. Approximately 10% of breast cancers are not detected with mammography. A negative mammographic report should not delay biopsy if a clinically suggestive mass is present. Ruth Chandra M.D. ay/:06/22/2017 12:06:28 Business Development Analyst: Iris MELVIN(Carito)(M), [facility] letter sent: Follow Up Recommended 3 BI-RADS Code: ACR-BI-RADS Category 3: Probably Benign Dictated by: Ruth Chandra MD Signed by: Ruth Chandra MD Assessment & Plan Plan: Continue annual mammography. She has her next mammogram scheduled for June. Continue on tamoxifen. She has follow-up of ointments with medical oncology. Continue follow-up with her primary care provider. We asked her to return to our office in 1 year. She may call if she has any questions or concerns in the interim. Total Time In Follow-Up I spent 20 minutes speaking to the patient and performing examination. I spent 15 minutes reviewing information and completing this note. AK Copy To Inocente Enriquez D.O.; Kendell Aguilar, D.O."
== END | disposition home or self-care (01) ==
LOC: C.ONC 12:53
PROVIDERS: ATTEND Physician Assistant Medical
DX: Z08 Encounter for follow-up examination after completed treatment for malignant neoplasm (principal); Z92.3 Personal history of irradiation; Z85.3 Personal history of malignant neoplasm of breast